=== PATIENT | male | born 1970 | race Caucasian/White ===

== ENCOUNTER 2018-06-18 06:51 | Inpatient (IN) ==
[2018-06-18] MEDS ORDERED: NS 1,000 ML IV ONE ×3 (07:08→17:28)
[2018-06-18] MEDS ORDERED: ZOFRAN IV ONE ×2 (07:08→09:57)
[2018-06-18] MEDS ORDERED: SODIUM CHLORIDE 0.9% INJ ONE (07:08)
[2018-06-18] MEDS ORDERED: PEPCID IV ONE (07:08)
[2018-06-18] MEDS ORDERED: DILAUDID IV ONE ×2 (07:08→09:57)
--- NOTE | 2018-06-18 07:14 | PROVIDER DOCUMENTATION ---
HPI-Abdominal Pain/GI Problem - General Chief Complaint: Abdominal Pain Stated Complaint: abd pain Time Seen by Provider: 06/18/18 07:00 Source: patient, EMS Allergies/Adverse Reactions: Patient Allergies Allergy/AdvReac Type Severity Reaction Status Date / Time No Known Allergies Allergy Verified 06/18/18 07:52 Home Medications: Home Medication List Medication Instructions Recorded Confirmed Last Taken Type NK [No Home Medications] 06/18/18 06/18/18 Unknown History - History of Present Illness-ABD Nature of Presenting Problems: Abdominal pain, gradual onset, 4 days ago. Pain is generalized, aching, severe , constant and waxes/wanes. There has been vomiting and nausea, lots of burping There has been also some flatus and liquid stools. No known infectious exposures, no known bad food exposures. 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 Abdominal Pain Onset Location: reports: generalized abdomen Pain Radiation: reports: no radiation Quality of Pain: reports: cramping, fullness, stabbing, tightness Severity in ED: reports: severe Onset/Duration: reports: 4 days ago Timing: reports: still present, constant, changing over time, getting worse Activities at Onset: reports: light activity Exposure to sick contacts?: No Modifying Factors: improves with: rest. worse with: movement, palpation, vomiting Associated Symptoms: reports: diaphoresis, diarrhea, fever/chills (subjective), loss of appetite, malaise, nausea, vomiting, weakness Last BM: this morning Dark Stools Present?: reports: none noticed (states stool is green) Rectal Bleeding: reports: none Rectal Pain: reports: none Emesis Description: reports: other (bilious) Bruising or Bleeding Gums?: No Similar Symptoms Previously?: No Recently seen or treated by another doctor?: No Review of Systems - Adult - REVIEW OF SYSTEMS - ADULT Constitutional: reports: see HPI, chills, fever, night sweats. denies: fatique , weight gain, weight loss Eyes: reports: no symptoms reported Ears, Nose, Mouth & Throat: reports: no symptoms reported Cardiovascular: reports: no symptoms reported Respiratory: reports: cough. denies: chronic cough, dyspnea on exertion, excessive sputum production, hemoptysis, pleurisy, shortness of breath, wheezing Gastrointestinal: reports: see HPI, abdominal pain, constipation, diarrhea, frequent heartburn, nausea, poor appetite, vomiting. denies: hematemesis Genitourinary: reports: no symptoms reported Musculoskeletal: reports: no symptoms reported Integumentary: reports: no symptoms reported Neurological: reports: no symptoms reported Psychiatric: reports: no symptoms reported Endocrine: reports: no symptoms reported Hematologic/Lymphatic: reports: no symptoms reported Allergic/Immunologic: reports: no symptoms reported All Other Systems: Reviewed and Negative Past History - Adult - PAST MEDICAL HISTORY-ADULT Review of Records: reports: Old Records Reviewed, Nursing Assessment Review, Medications Reviewed, Social history reviewed & non-contributory. Major Childhood Illnesses: reports: denies history Cardiovascular: reports: denies history Respiratory: reports: denies history Gastrointestinal: reports: denies history Obstetrical/Gynecological: reports: denies history Genitourinary: reports: denies history Musculoskeletal: reports: denies history Neurological: reports: denies history Endocrine/Immune: reports: denies history Other Conditions: reports: denies history - PRIOR SURGERIES/PROCEDURES Surgical/Procedure History: reports: none - IMMUNIZATION STATUS Childhood Immunizations: UTD Flu Vaccine: NUTD - FAMILY HISTORY Family History: reviewed, not pertinent - SOCIAL HISTORY Smoking: non-smoker Substance Use: none/never Alcohol Use Frequency: occasionally Living Situation: alone 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 negative: moist mucous membranes (dry mucous membranes) - NECK Neck: non-tender, full range of motion, supple, normal inspection - RESPIRATORY Respiratory: chest non-tender, lungs clear, normal breath sounds, no pleuratic chest pain, no respiratory distress, no accessory muscle use - CARDIOVASCULAR Cardiovascular: normal peripheral pulses, regular rate, rhythm, no edema, no gallop, no JVD, no murmur, tachycardia - GASTROINTESTINAL (ABDOMEN) Abdominal Exam: no organomegaly, no pulsatile mass, abnormal bowel sounds ( hypoactive), distended, guarding, rebound, tenderness (diffuse) - LYMPHATIC Lymphatic: no adenopathy - MUSCULOSKELETAL Back Exam: normal inspection, no CVA tenderness, no vertebral tenderness Extremity: normal range of motion, non-tender, normal gait, normal inspection, no pedal edema, no calf tenderness - SKIN Integumentary: normal color, normal turgor, warm/dry - 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 as tested, grossly normal, no motor/sensory deficits - PSYCHIATRIC Psych/Mental Status: normal mood/affect, normal thought content, normal thought process, oriented x 3 Progress - PLAN OF CARE/RESULTS Progress/Plan/Lab Results: Vital Signs - 8 hr 06/18/18 07:06 Temperature 99.0 F Pulse Rate 132 H Respiratory Rate 20 Blood Pressure 159/107 O2 Sat by Pulse Oximetry 98 Orders Category Date Time Status Saline Loc NOW Care 06/18/18 07:05 Ordered NPO Diet 06/18/18 07:[address] ABD/PELVIS W/IV CONT ONLY [CT] Stat Exams 06/18/18 07:07 Ordered FLAT/UPRIGHT ABD/1 VIEW CHEST [RAD] Stat Exams 06/18/18 07:07 Ordered AMYLASE [CHEM] Stat Lab 06/18/18 07:06 Uncollected BLOOD CULTURE [BLDCUL] Stat Lab 06/18/18 07:06 Uncollected C DIFF TOXIN [STOOL] Stat Lab 06/18/18 07:06 Uncollected CBC WITH ELECTRONIC DIFF [HEME] Stat Lab 06/18/18 07:06 Uncollected COMPREHENSIVE METABOLIC PANEL [CHEM] Stat Lab 06/18/18 07:06 Uncollected LACTATE, PLASMA [CHEM] Stat Lab 06/18/18 07:06 Uncollected LIPASE [CHEM] Stat Lab 06/18/18 07:06 Uncollected MAGNESIUM [CHEM] Stat Lab 06/18/18 07:06 Uncollected OCCULT BLOOD SCREENING [STOOL] Stat Lab 06/18/18 07:06 Uncollected TROPONIN T Stat Lab 06/18/18 07:06 Uncollected URINALYSIS W/POSS RFLX CULT [URINALYSIS] Stat Lab 06/18/18 07:06 Uncollected Famotidine [Pepcid] Med 06/18/18 07:08 Once 20 mg IV NOW ONE Hydromorphone [Dilaudid] Med 06/18/18 07:08 Once 1 mg IV NOW ONE Ns 1000 ml IV Bolus X1 Med 06/18/18 07:08 Ordered 0.9% Sodium Chloride Inj [Ns] 1,000 ml IV 999 mls/hr Ns 1000 ml IV Bolus X1 Med 06/18/18 07:08 Ordered 0.9% Sodium Chloride Inj [Ns] 1,000 ml IV 999 mls/hr Ondansetron [Zofran] Med 06/18/18 07:08 Once 4 mg IV NOW ONE Sodium Chloride 0.9% Med 06/18/18 07:08 Once 5 - 10 ml INJ NOW ONE EKG [EKG] Stat Ther 06/18/18 07:05 Ordered Result Diagrams: 06/18/18 07:29 06/18/18 07:29 - REASSESSMENT Reassessment #1 Time Reassessed: 08:47 Status: improving (decreased pain after IVF and hydromorphone. Aunt at bedside now, states he "works out a lot" abd takes "a lot of supplements, one of which can cause his urine to be dark brown.") Reassessment #2 Time Reassessed: 09:56 Status: worsening (Patient is complaining of increased abdominal pain and distension, will insert NGT and give more pain meds.) - XRAY 1 XRAY Study: Chest Impression: Normal, See EMR Report (CHEST-PORTABLE - 06/18/2018 INDICATION: abdominal pain, sepsis COMPARISON: None FINDINGS: The lungs are normally expanded and clear. Heart size and mediastinal contours are normal. No pneumothorax or pleural effusion. IMPRESSION: Negative exam. Electronically signed by Hernan Velazquez 06/18/2018 9:07 AM 06/18/18 0907 Interpreting Physician: Hernan Velazquez MD Dictated Date/Time: 06/18/18 0905 cc: Nathan Jorgensen MD; None,PCP) - CT/MRI 1 CT Study: Abdomen Impression: Abnormal (EXAM: CT ABDOMEN/PELVIS W/O CONTRAST 06/18/2018 HISTORY: abd pain, acute kidney injury TECHNIQUE: This exam was performed using automated exposure control, adjustment of mA or kV according to patient size, and/or use of iterative reconstruction technique. COMMENT: There is atelectasis and/or fibrosis present in the costophrenic sulci particularly on the left. There are no previous studies available for comparison. The spleen is enlarged measuring over 14.8 cm in superior-inferior dimension. There is no evidence of nephrolithiasis or hydronephrosis. There are no apparent gallstones. There is gas and fluid in the stomach without significant distention. The proximal small bowel is distended with gas there is no evidence of free air. There is no evidence of mucosal fold thickening. There is some fluid in the ascending colon. The distal small bowel is not distended. There is no clear transition in the small bowel. There is some apparent inflammatory changes in the retroperitoneal fat just above the bifurcation of the aorta and in the left posterior pararenal space. There is no evidence of abdominal aortic aneurysm. The left colon is not distended. There is perirectal fat stranding and thickening of the perirectal fascia. There is no evidence of diverticulitis. The urinary bladder is slightly distended. The prostate is not particularly enlarged measuring 4.5 cm in transverse dimension. There is a fat- containing left inguinal hernia. There are degenerative changes at the level of the L5-S1 disc space. No evidence of acute bony disease is present. The appendix is normal in appearance. IMPRESSION: Apparent proctitis and retroperitoneal inflammatory change/edema. Probable ileus. Splenomegaly. Electronically signed by Maik Bernabe 06/18/2018 9:09 AM), See EMR Report - CONSULTS/PCP/HOSPITALIST Notification #1 *Consult/PCP/Hospitalist*: Maged Time Discussed: 09:49 (Also discussed at 1000, will see after current OR case) Consult Disposition: other (WIll see in consultation) #2 Consult: Pool sanders Time Discussed: 10:04 (Admit to [facility]) Consult Disposition: Will see in ED Departure - Departure Date of Disposition Decision: 06/18/18 Time of Disposition Decision: 09:57 DIAGNOSIS: Abdominal pain in male, Acute kidney injury (nontraumatic) Sepsis Qualifiers: Sepsis type: sepsis due to unspecified organism Qualified Code(s): A41.9 - Sepsis, unspecified organism Disposition: ADMITTED INPATIENT 09 Certified Medical Emergency: Emergent Condition: Fair Referrals and Follow-Ups: None,PCP [Primary Care Provider] - - Critical Care Note This patient required my direct & personal management of CC.: Yes Total Time (mins): 50 Critical Care Statement: This patient required my direct personal management to treat or rule out processes, the absence of which, could potentiallly result in sudden, clinically significant life or limb threatening deterioration. Attestation - Physician/ CORINNA Attestation Patient care was provided by Advanced Practice Provider:: No The physician spent face to face time with patient:: Yes Advanced Practice Provider documentation review:: Supervising physician onsite and consulted in the evaluation and care of this patient. The physician did have a face to face encounter with the patient.
[2018-06-18 07:45] LABS: BASO# 0.01 X1000 (0.0-0.2); BASO% 0.1 % (0.0-0.8); HEMATOCRIT 47.5 % (42.0-52.0); HEMOGLOBIN 16.1 g/dL (14.0-18.0); IMM GRAN# 0.27 X1000 (0.0-0.04); IMM GRAN% 2.5 % (0.0-0.5); LYMPH# 0.19 X1000 (1.2-3.4); LYMPH% 1.7 % (20.5-51.1); MCH 29.7 PG (27-31); MCHC 33.9 g/dL (33-37); MCV 87.6 FL (81-99); MONO# 0.23 X1000 (0.11-0.59); MONO% 2.1 % (1.7-9.3); MPV 9.5 FL (7.4-10.4); NEUT# 10.19 X1000 (1.4-6.5); NEUT% 93.6 % (42.2-75.2); PLT 113 X1000 (130-400); RBC 5.42 XMIL (4.7-6.1); RDW 13.4 % (11.5-14.5); WBC 10.89 X1000 (4.8-10.8)
[2018-06-18 08:15] LABS: ALB/GLOB RATIO 1.6; ALBUMIN 4.1 g/dL (3.5-5.0); CALCIUM 8.6 mg/dL (8.8-10.2); CREATININE 2.7 mg/dL (0.7-1.2); MAGNESIUM 1.8 mg/dL (1.5-2.7); POTASSIUM 3.9 mmol/L (3.5-5.1); TOTAL BILIRUBIN 0.74 mg/dL (0.20-1.00); TOTAL PROTEIN 6.7 g/dL (6.3-8.3)
[2018-06-18 08:18] LABS: URINE SOURCE CLEAN CATCH
[2018-06-18] MEDS ORDERED: ZOSYN 4.5 GM in NS 100 ML IV ONE (08:28)
[2018-06-18 08:33] LABS: BILIRUBIN URINE NEGATIVE (NEGATIVE); BLOOD URINE SMALL (NEGATIVE); COLOR YELLOW; GLUCOSE URINE NEGATIVE (NEGATIVE); KETONE URINE NEGATIVE (NEGATIVE); LEUKOCYTES URINE NEGATIVE (NEGATIVE); NITRITE URINE NEGATIVE (NEGATIVE); PH URINE 5.5; PROTEIN URINE 100 mg/dL (NEGATIVE); SP GRAVITY URINE 1.017; TURBIDITY URINE HAZY (CLEAR); UROBILINOGEN URINE NORMAL (NORMAL)
[2018-06-18 08:55] LABS: UR EPITHELIAL CELLS <10 /HPF (<10); URINE BACTERIA NEGATIVE /HPF; URINE RBC <10 /HPF (<10); URINE WBC <10 /HPF (<10)
[2018-06-18 09:05] LABS: URINE CASTS WHITE CELL PRESENT
--- NOTE | 2018-06-18 09:09 | Diag Imaging Result Doc PS360 ---
CHEST-PORTABLE - 06/18/2018 INDICATION: abdominal pain, sepsis COMPARISON: None FINDINGS: The lungs are normally expanded and clear. Heart size and mediastinal contours are normal. No pneumothorax or pleural effusion. IMPRESSION: Negative exam. Electronically signed by Hernan Velazquez 06/18/2018 9:07 AM
--- NOTE | 2018-06-18 09:11 | Diag Imaging Result Doc PS360 ---
EXAM: CT ABDOMEN/PELVIS W/O CONTRAST 06/18/2018 HISTORY: abd pain, acute kidney injury TECHNIQUE: This exam was performed using automated exposure control, adjustment of mA or kV according to patient size, and/or use of iterative reconstruction technique. COMMENT: There is atelectasis and/or fibrosis present in the costophrenic sulci particularly on the left. There are no previous studies available for comparison. The spleen is enlarged measuring over 14.8 cm in superior-inferior dimension. There is no evidence of nephrolithiasis or hydronephrosis. There are no apparent gallstones. There is gas and fluid in the stomach without significant distention. The proximal small bowel is distended with gas there is no evidence of free air. There is no evidence of mucosal fold thickening. There is some fluid in the ascending colon. The distal small bowel is not distended. There is no clear transition in the small bowel. There is some apparent inflammatory changes in the retroperitoneal fat just above the bifurcation of the aorta and in the left posterior pararenal space. There is no evidence of abdominal aortic aneurysm. The left colon is not distended. There is perirectal fat stranding and thickening of the perirectal fascia. There is no evidence of diverticulitis. The urinary bladder is slightly distended. The prostate is not particularly enlarged measuring 4.5 cm in transverse dimension. There is a fat-containing left inguinal hernia. There are degenerative changes at the level of the L5-S1 disc space. No evidence of acute bony disease is present. The appendix is normal in appearance. IMPRESSION: Apparent proctitis and retroperitoneal inflammatory change/edema. Probable ileus. Splenomegaly. Electronically signed by Maik Bernabe 06/18/2018 9:09 AM
[2018-06-18 09:19] LABS: UR AMPHETAMINES QUAL NONE DETECTED (NONE DETECT); UR BARBITUATES QUAL NONE DETECTED (NONE DETECT); UR BENZODIAZEPIN QUAL NONE DETECTED (NONE DETECT); UR CANNABINOIDS QUAL NONE DETECTED (NONE DETECT); UR COCAINE QUAL NONE DETECTED (NONE DETECT); UR METHADONE QUAL NONE DETECTED (NONE DETECT); UR OPIATES QUAL PRESUMPTIVE POSITIVE (NONE DETECT); UR OXYCODONE QUAL NONE DETECTED (NONE DETECT); UR PCP QUAL NONE DETECTED (NONE DETECT)
--- NOTE | 2018-06-18 10:06 | ED EKG INTERP ---
EKG Interpretation - EKG Time of EKG reading by physician:: 09:20 EKG Read and Signed by:: Nathan Jorgensen EKG Interpretation (*Must complete 3 of following elements*): Abnormal Rate: 124 Rhythm: sinus tach [place]: normal [place] Interval: shortened (LAE, artifact present) ST Wave: normal Prior EKG Comparison: no prior EKG Attestation - Physician/ CORINNA Attestation Patient care was provided by Advanced Practice Provider:: No The physician spent face to face time with patient:: Yes Advanced Practice Provider documentation review:: Supervising physician onsite and consulted in the evaluation and care of this patient. The physician did have a face to face encounter with the patient.
[2018-06-18 10:09] LABS: INR 1.03; PROTIME 14.4 Seconds (11.0-16.0)
[2018-06-18 10:10] LABS: PTT 42.6 Seconds (22.3-41.8)
--- NOTE | 2018-06-18 10:16 | EKG Report ---
Test Performed on : 06/18/2018 09:14:25 AM Test Reason : abdominal pain Blood Pressure : / mmHG Vent. Rate : 124 BPM Atrial Rate : 124 BPM P-R Int : 150 ms QRS Dur : 092 ms QT Int : 298 ms P-R-T Axes : 030 049 -01 degrees QTc Int : 428 ms Sinus tachycardia. Possible Left atrial enlargement Borderline ECG No previous ECGs available Unconfirmed Result
[2018-06-18] MEDS ORDERED: ATIVAN IV ONE (10:21)
--- NOTE | 2018-06-18 11:00 | Diag Imaging Result Doc PS360 ---
EXAM: CHEST/ABD TUBE PLACEMENT 06/18/2018 HISTORY: tube placement TECHNIQUE: AP portable at 1050 COMMENT: There is an NG tube with its tip in the left upper quadrant presumably in the gastric body. There is extensive dilatation of small bowel loops in the midabdomen. IMPRESSION: NG tube in the stomach. Small bowel obstruction. Electronically signed by Maik Bernabe 06/18/2018 10:57 AM
[2018-06-18] MEDS ORDERED: PHENERGAN IV PRN (11:09)
[2018-06-18] MEDS ORDERED: NS 2,000 ML IV ONE (11:09)
[2018-06-18 12:13] LABS: UR CREAT RANDOM 234.3 mg/dL (14-26)
[2018-06-18] MEDS ORDERED: OFIRMEV 1000 MG/ISOTONIC SOLN 1,000 MG/100 ML BOTTLE IV PRN (12:13)
[2018-06-18 12:14] LABS: PROTEIN CREAT RATIO 0.3; UR CREAT RANDOM 239.9 mg/dL (14-26); UR PROT RANDOM 83.8 mg/dL
[2018-06-18] MEDS: NS 1,000 ML IV SCH ×2 (12:30→21:51)
[2018-06-18] MEDS: OFIRMEV 1000 MG/ISOTONIC SOLN 1,000 MG/100 ML BOTTLE IV PRN ×2 (12:30→18:49)
[2018-06-18] MEDS: PROTONIX IV SCH (12:30)
[2018-06-18] MEDS: LEVAQUIN 500 MG/D5W 500 MG/100 ML IVPB IV SCH (12:30)
[2018-06-18 12:31] LABS: ALLEN TEST YES; BE -5.9 mmoll (-3.0-3.0); BLOOD TYPE ARTERIAL; HCO3-(ACT) 20.2 mmoll (20.0-26.0); METHB 1.2 % (0.0-1.5); MODALITY CANNULA; O2(CT) 17.7 mL/dL (15.0-23.0); O2HB 93.6 % (95.0-99.0); PCO2(98.6) 33 mmHg (35-45); PO2(98.6) 77 mmHg (60-100); SAMPLE BLOOD; SAO2 96.2 % (95.0-100.0); THB 13.4 g/dL (11.5-17.4); pH(98.6) 7.36 (7.35-7.45)
[2018-06-18] MEDS: LOPRESSOR IV PRN ×2 (12:42→18:49)
[2018-06-18 12:43] LABS: ACETONE SERUM NEGATIVE (NEGATIVE)
[2018-06-18 12:48] LABS: SALICYLATES < 3.00 mg/dL (3-10)
[2018-06-18] MEDS: FLAGYL 500 MG/NS 500 MG/100 ML IVPB IV SCH ×3 (12:49→23:45)
[2018-06-18 12:58] LABS: HEMOGLOBIN A1C 5.2 % (4.8-6.0)
--- NOTE | 2018-06-18 13:26 | HISTORY AND PHYSICAL ---
PRIMARY CARE PROVIDER: None. CHIEF COMPLAINT: Fever, myalgia, and abdominal pain. HISTORY OF PRESENT ILLNESS: Mr. Martinez is a 47-year-old male with no known medical problems. 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 He is in [place] taking care of his aunt who just had back surgery. Mr. Martinez started having fever and chills on Saturday followed by abdominal discomfort, nausea, vomiting, and some diarrhea. This was waxing and waning over the weekend and Saturday he started having worsening abdominal pain, chills, myalgia, and finally came to the E.R. today for evaluation. Of note, Mr. Martinez also does daily weightlifting and takes multiple over- the-counter supplements which are of unknown name at this time. However, he reports none of them are illegal. In the E.R. he had multiple labs and diagnostics done, his chemistry noted an elevated anion gap and metabolic acidosis along with acute kidney injury. However, the rest of his laboratory data is essentially unremarkable. A subsequent CT of the abdomen and pelvis showed apparent proctitis and retroperitoneal inflammatory changes, edema, and probable ileus as well as splenomegaly. Given the symptoms, we ordered a flu swab which was found positive for flu A. The patient is normotensive, however, he is quite tachycardic with his heart rate in the 150s and he has a fever of 100.7 so we will be putting him in the ICU. PAST MEDICAL HISTORY: None. SURGICAL HISTORY: Tonsillectomy and adenoidectomy as a child. SOCIAL HISTORY: No tobacco or drug use. He drinks about a bottle of wine a day. He is . He has 2 children. 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 He also does daily weight-lifting with use of multiple OTC herbal supplements. FAMILY HISTORY: Significant for addiction and alcoholism. His mother is from a suicide. ALLERGIES: No known drug allergies. HOME MEDICATIONS: None, although he takes multiple supplements over-the- counter of which the names are unknown at this time. REVIEW OF SYSTEMS: A 14 point review of systems was obtained and found to be negative with the exception of the HPI. PHYSICAL EXAMINATION: VITAL SIGNS: Blood pressure is 150/107, heart rate 149, respiratory rate 31, O2 sat 96% on 2 L nasal cannula, and temperature 100.7. GENERAL: This is a well-developed, well-nourished, male lying in a hospital bed in no acute distress. NEUROLOGIC: The patient is sedated at this time. He was given Dilaudid and Ativan for NG tube placement. HEENT: The head is atraumatic and normocephalic. His pupils are equal, round, and reactive to light. Oral mucosa is extremely dry. NECK: Trachea is midline. There is no JVD. CHEST: Clear to auscultation. CARDIOVASCULAR: Extremely tachycardic. Regular rhythm. S1, S2 is noted. GASTROINTESTINAL: Distended and diffusely tender to palpation. There is some guarding and rebound tenderness. EXTREMITIES: The extremities are without edema, clubbing, or cyanosis. DIAGNOSTIC DATA: Abdomen and pelvic CT: Please see HPI. Chest x-ray: Negative. EKG: Sinus tach. Influenza A positive. WBC is 7.89, hemoglobin 16.1, hematocrit 47.5, and platelet count 113. INR is 1.03. Sodium is 138, potassium 3.9, chloride 97, CO2 21, anion gap 20, BUN 51, creatinine 2.7, glucose 131, magnesium 1.8, AST 16, ALT 17, and ALK PHOS 64. Troponin is negative. Total protein is 6.7, albumin 4.1, and lipase 9. Lactate repeat is 1.5. UA shows 100 protein and small blood. Toxicology is positive for opiates. ASSESSMENT AND PLAN: 1. Acute abdominal pain/ileus or small bowel obstruction: CT shows proctitis and ileus. However, this is an uncontrasted CT given his renal failure. Given the distention he was given an NG tube which has been putting out large amounts of drainage. We will consult surgery. Continue IV fluids and antiemetics as well as antibiotics. We have also ordered comprehensive stool studies. 2. Influenza A positive: Tamiflu has been started and we have also ordered Ofirmev for his fever. He will be placed on droplet precautions and monitored closely for any secondary infection. 3. Acute kidney injury: It would appear to be prerenal given his volume status. However, he takes multiple [id number]-srt-[id number] supplements which we do not know the names of , which could certainly be causing renal issues. CT of the abdomen and pelvis does not show any obstruction. We are checking urine electrolytes and continuing aggressive fluid resuscitation. 4. Thrombocytopenia and splenomegaly on CT: Unclear of the significance. He does drink 1 bottle of wine a day, possibly more. We will check his B12 and folate as well as a hepatitis panel and HIV screen. 5. Deep vein thrombosis prophylaxis with sequential compression devices. Further recommendations to follow. TIME SPENT: Critical care time with this patient was 45 minutes. Dictated by JOANN Seaman for Tree Dunbar MD cc: JOANN Seaman MD [facility]
[2018-06-18 13:41] LABS: URINE SOURCE CATH
[2018-06-18 13:44] LABS: BILIRUBIN URINE NEGATIVE (NEGATIVE); BLOOD URINE SMALL (NEGATIVE); COLOR YELLOW; GLUCOSE URINE NEGATIVE (NEGATIVE); KETONE URINE NEGATIVE (NEGATIVE); LEUKOCYTES URINE NEGATIVE (NEGATIVE); NITRITE URINE NEGATIVE (NEGATIVE); PH URINE 5.5; PROTEIN URINE 100 mg/dL (NEGATIVE); SP GRAVITY URINE 1.014; TURBIDITY URINE HAZY (CLEAR); UROBILINOGEN URINE NORMAL (NORMAL)
[2018-06-18 14:15] LABS: UR EPITHELIAL CELLS <10 /HPF (<10); URINE BACTERIA NEGATIVE /HPF; URINE RBC <10 /HPF (<10); URINE WBC <10 /HPF (<10); URINE YEAST PRESENT
[2018-06-18 14:17] LABS: URINE CASTS NONE SEEN; URINE CRYSTALS NONE SEEN; URINE SMALL ROUND CELLS NONE SEEN
[2018-06-18] MEDS: TAMIFLU PO SCH ×2 (15:26→20:46)
--- NOTE | 2018-06-18 17:07 | Diag Imaging Result Doc PS360 ---
EXAM: No visible liver lesion. - 06/18/2018 HISTORY: elevated liver enzymes TECHNIQUE: Ultrasound gallbladder COMPARISON: None. FINDINGS: There is sludge in the gallbladder versus artifact. There are no shadowing or mobile gallstones identified. There is no abnormal gallbladder wall thickening or pericholecystic fluid seen. The technologist reports negative sonographic Pradhan's sign. The common bile duct is normal caliber at 5 mm. There are no abnormalities of the liver or visualized portions of the pancreas identified. Doppler image shows hepatopedal flow in the portal vein. There is a 5 mm echogenic focus without shadowing at the corticomedullary margin of the mid right kidney. This is likely an artifact. The right kidney shows no other abnormalities. Visualized portions of abdominal aorta appear normal caliber. IMPRESSION: Questionable sludge in gallbladder versus artifact. No evidence of gallstones. Normal caliber common bile duct at 5 mm. Electronically signed by Venkat Cabrales 06/18/2018 5:05 PM
--- NOTE | 2018-06-18 17:31 | GASTROENTEROLOGY CONSULTATION ---
DATE: 06/18/2018 REASON FOR CONSULTATION: Proctitis on imaging. HISTORY OF PRESENT ILLNESS: Mr. Lucas Martinez is a 47-year-old gentleman with no significant past medical history who presents with 4 days of subjective fever, myalgias, and abdominal pain. He says that over the last 3 days he has noticed increasing abdominal distention, bloating, and diffuse abdominal pain. He reports having some liquid brown stools, small volume, a couple of times a day. No rectal bleeding, hematochezia, or hematemesis. He denies any history of similar symptoms in the past. No recent sick contacts. No new medications. He does take different supplements for various reasons. No prior abdominal surgeries. No family history of colon cancer or intestinal diseases. His mother of a suicide. Family history is notable for alcoholism. He does state that he previously drank pretty heavily and would go through a couple of bottles of liquor over the weekends a few years ago and now he says that he drinks several beers per week. He denies any prior complications from alcohol in the past. No jaundice, ascites, or GI bleeding. He does say that he had an upper GI series in the remote past for GERD but has never had an EGD or colonoscopy. Lastly, he does deny any rectal trauma or enemas. PAST SURGICAL HISTORY: Tonsillectomy and adenoidectomy. MEDICATIONS: None. Multiple supplements as outlined in the medical record. FAMILY HISTORY: No GI malignancies. SOCIAL HISTORY: Nonsmoker. No drug use. Significant alcohol history in the past. ALLERGIES: No known drug allergies. REVIEW OF SYSTEMS: A 12 point review of systems is otherwise negative. PHYSICAL EXAMINATION: Vital Signs: Temperature is 100.7, heart rate 149, respiratory rate 31, blood pressure 150/107, and O2 saturation 96% on 3 L nasal cannula. General: The patient is awake, alert, oriented, and in no acute distress. HEENT: Sclerae are anicteric. Dry mucous membranes. NG tube with bilious fluid in the reservoir. Neck: No JVD or lymphadenopathy. Cardiac: Tachycardic. Normal rhythm. No murmurs. Lungs: Clear to auscultation bilaterally. The patient has notable gynecomastia on his chest. Abdomen: Distended and tympanic. Mild diffuse tenderness to palpation throughout. Hypoactive bowel sounds. No rebound or guarding. Extremities: No lower extremity edema. No rashes. Neurological: Nonfocal. Cranial nerves 2 through 12 are grossly intact. Psych: Normal affect. LABORATORY DATA: White count of 10.8, hemoglobin of 16.1, and platelets of 113,000. INR of 1.03. Sodium is 138, potassium 3.9, chloride 97, bicarb 21, BUN 51, creatinine 2.7 from unknown baseline, glucose 131, and calcium 8.6. LFTs are normal. Lipase of 9. Lactate of 3. UA shows some proteinuria, otherwise negative. Urine tox was positive for opiates. IMAGING: Chest x-ray is normal. CT of the abdomen and pelvis without contrast shows apparent proctitis and retroperitoneal inflammatory changes and edema, probable ileus and splenomegaly. ASSESSMENT AND PLAN: Mr. Lucas Martinez is a 47-year-old gentleman with a notable history of alcoholism who presents with sepsis in the setting of influenza A and ileus. Labs are notable for an elevated lactate of 3, creatinine of 2.7 consistent with acute kidney injury, and thrombocytopenia. Liver function tests are normal as well as coagulation studies. The patient was started on Tamiflu for influenza. He is currently n.p.o. and Surgery is being consulted for his ileus. In regards to his proctitis, he does not have any risk factors for human immunodeficiency virus or infectious proctitis. Other etiologies include inflammatory proctitis including ulcerative proctocolitis. This was a noncontrast study and could be represented by underdistention of the rectum. He will need a diagnostic colonoscopy once his acute issues resolve. Currently there is no evidence of gastrointestinal bleeding. 1. Proctitis. Recommend HIV testing, send off stool culture as well as C. difficile and ova and parasites if the patient has a bowel movement. 2. Ileus. Continue supportive care repleting electrolytes and IV fluids. N.P.O. status. Serial abdominal exams. Appreciate Surgery recommendations. 3. Sepsis, secondary to influenza. On Tamiflu. We will defer management to the primary team. 4. Thrombocytopenia, likely secondary to splenomegaly. Patient likely has SRINI versus cirrhosis. No stigmata of cirrhosis on exam. Recommend an abdominal ultrasound prior to discharge. 5. Alcoholism. Recommend CIWA. Start the patient on thiamine 100 mg daily, folate 1 mg daily, and multivitamin. Continue alcohol cessation counseling. We will follow with you. Please call with any questions or concerns.
--- NOTE | 2018-06-18 17:55 | HISTORY AND PHYSICAL ---
ADDENDUM: This is an addendum with JOANN Castillo. The patient came in with abdominal pain, some diarrhea, fever, myalgias. Workup in the ER revealed a fever, 102.8 degrees. He was tachycardic in the 150s. He is plethoric and seems vasodilated. Not hypotensive, though. His labs showed a mild thrombocytopenia. White count mildly elevated. He was in renal failure. His abdominal exam was distended. Bowel sounds were not present, but no rebound or guarding. His CT scan showed questionable ileus versus enteritis and possibly proctitis. It was noncontrast because of his renal insufficiency and nausea and vomiting. PROBLEM LIST: 1. Influenza A, which may explain most of his issues. Because of his throwing up or having some difficulty, we will attempt to give Tamiflu. 2. Sepsis, tachycardia, dehydration, acute kidney injury. We will continue intravenous fluids and follow. No nonsteroidal anti-inflammatory drugs. We will continue to monitor. 3. Proctitis. We will continue empiric antibiotics. Gastroenterology has been consulted, but feel like most of this is from the flu. 4. Thrombocytopenia and splenomegaly. He is not a daily drinker. He has a heavy use in the past. It is entirely possible he may have some degree of alcoholic steatohepatitis, but we will monitor his platelet count. Could be some viral suppression as well, but we will continue to monitor. Check urine electrolytes and follow. This is a [id number] encounter note with JOANN Castillo. cc: Tree Dunbar MD
[2018-06-18] MEDS: MORPHINE IV PRN ×2 (18:08→23:22)
[2018-06-18 18:35] LABS: HIV ANTIBODY SCREEN SEE COMMENTS
--- NOTE | 2018-06-18 19:01 | GENERAL SURGERY CONSULTATION ---
DATE: 06/18/2018 CHIEF COMPLAINT: Abdominal pain. HISTORY: A 47-year-old white male who began experiencing fatigue 3 days ago while at the gym. This was subsequently followed by chills and fever, and then the next day Saturday he developed abdominal pain, began lower in his abdomen and seemed to spread upward. He reports vomiting only one time, passing a little stool twice a day since then, but has had increasing abdominal pain, chills and fever. He sought medical attention this morning. He reports a possible history of ulcer disease when he was 14 years ago because of his mother's . He also had some depression at that point. He also has been through otherwise stress recent in the past year, including a divorce in [place] as well as [place] in [place]. He reports previous tonsillectomy and adenoidectomy as a child. SOCIAL HISTORY: He denies tobacco or illicit drug use. He does drink alcohol regularly. He reports having a glass of rum a week ago, some beer on Saturday before he became ill on Saturday. 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 He does a lot of weightlifting and takes over-the- counter herbal supplements, the nature of which we do not know. FAMILY HISTORY: Pertinent for alcoholism and addiction. ALLERGIES: He has no known drug allergies. MEDICATIONS: He has no medications except the [id number] supplements. REVIEW OF SYSTEMS: As noted above. PHYSICAL EXAMINATION: Vital Signs: Temperature is a 100.3, heart rate 128, blood pressure 153/104, respiratory rate 14. General: He is somewhat tremulous. As I speak to him he is awake and alert and oriented. He has an NG tube in with bilious output. HEENT: No cervical adenopathy. Lungs: Bilateral breath sounds. Heart: Regular rate and rhythm. Abdomen: Somewhat distended and diffusely tender with peritoneal signs. No hernia palpated. Extremities: Femoral pulses are present. No peripheral edema. ASSESSMENT: Colitis;sepsis, acute kidney injury RECOMMEND: Agree that antibiotic therapy and resuscitation is of first priority Will follow along with serial abd exams. Exploration remains a possibility but not initially. Ovi Lynne MD, FACS cc: Ovi Lynne MD [facility]
[2018-06-18] MEDS ORDERED: VANCOMYCIN IV PER PHARMACY MISC SCH (22:45)
[2018-06-18] MEDS ORDERED: VANCOMYCIN 1,950 MG in NS 500 ML IV ONE (23:00)
[2018-06-19] MEDS: OFIRMEV 1000 MG/ISOTONIC SOLN 1,000 MG/100 ML BOTTLE IV PRN ×2 (02:56→11:22)
[2018-06-19] MEDS: MORPHINE IV PRN ×5 (02:57→20:24)
[2018-06-19] MEDS: NS 1,000 ML IV SCH ×3 (03:41→17:20)
[2018-06-19 05:20] LABS: BASO# 0.01 X1000 (0.0-0.2); BASO% 0.1 % (0.0-0.8); HEMATOCRIT 37.2 % (42.0-52.0); HEMOGLOBIN 12.5 g/dL (14.0-18.0); IMM GRAN# 0.09 X1000 (0.0-0.04); IMM GRAN% 0.9 % (0.0-0.5); LYMPH# 0.32 X1000 (1.2-3.4); LYMPH% 3.1 % (20.5-51.1); MCH 30.1 PG (27-31); MCHC 33.6 g/dL (33-37); MCV 89.6 FL (81-99); MONO# 0.45 X1000 (0.11-0.59); MONO% 4.4 % (1.7-9.3); MPV 10.1 FL (7.4-10.4); NEUT% 91.5 % (42.2-75.2); PLT 110 X1000 (130-400); RBC 4.15 XMIL (4.7-6.1); RDW 13.7 % (11.5-14.5); WBC 10.27 X1000 (4.8-10.8)
[2018-06-19] MEDS: FLAGYL 500 MG/NS 500 MG/100 ML IVPB IV SCH ×4 (05:34→17:20)
[2018-06-19 05:51] LABS: CALCIUM 8.5 mg/dL (8.8-10.2); CREATININE 1.4 mg/dL (0.7-1.2); MAGNESIUM 2.1 mg/dL (1.5-2.7); POTASSIUM 3.5 mmol/L (3.5-5.1)
[2018-06-19 06:58] LABS: LYMPHS 4 % (21-51); MONO 3 % (1-9); SEGS 93 % (42-75)
[2018-06-19] MEDS: TAMIFLU PO SCH ×2 (08:36→20:25)
--- NOTE | 2018-06-19 09:42 | PROGRESS NOTE ---
DATE: 06/19/2018 INTERVAL HISTORY: Overnight, both of the patient's blood cultures grew gram-positive cocci, and intravenous vancomycin was added. The patient continues to have fever. He continues to put out significant output through the NG tube, about 1.8 L so far since admission. SUBJECTIVE: The patient tells me that about a week ago, he did have unprotected sexual intercourse including anal intercourse with a male partner, however, he does not want me to reveal this information to any of his family members. I assured him that this information would be kept to himself, but I also informed him that in order to ensure better medical care, this information might be shared among the healthcare providers taking care of him and he was in agreement. He is feeling a little better than yesterday. He is denying any chest pain or shortness of breath. His abdominal pain has improved. However, he still continues to have abdominal pain. He had a very small bowel movement yesterday, which was pasty yellow. He denies noticing any pus coming out. OBJECTIVE: Vital Signs: Temperature 99.2 degrees, pulse 110 per minute, blood pressure 137/95, saturating 97% on 3 L nasal cannula. General: Appears in mild to moderate distress because of abdominal discomfort. HEENT: He has an NG tube in place. Oral cavity is moist. Lungs: Air entry bilaterally equal. No wheeze, rhonchi, or crackles. Cardiovascular: S1 and S2 normal. Tachycardic. No murmur, rub, or gallop. Abdomen: Distended, soft. He has generalized abdominal tenderness, more prominent on the lower quadrants. Active bowel sounds. Lower Extremities: No edema. Genitourinary: He has a Palencia catheter in place. LABORATORY DATA: Labs suggestive of low hemoglobin and hematocrit, thrombocytopenia, low potassium, hyperchloremia, improving anion gap, what appears to be chronic kidney disease stage 3. Urine opiate screen was positive. HIV 1 and 2 antibodies were nonreactive. MICROBIOLOGY: Both blood cultures are growing gram-positive cocci. Influenza screen was positive for influenza type A. ASSESSMENT AND PLAN: 1. Sepsis due to gram-positive cocci, likely source being proctitis. Continue intravenous vancomycin. He was already on intravenous levofloxacin and intravenous Flagyl, which I would keep for now until final blood culture results come back. Gastroenterology on board. The likely source of proctitis could be mechanical erosion of rectal mucosa. 2. Acute abdominal pain and ileus versus small bowel obstruction. This is likely ileus secondary to his acute illness. Continue nasogastric tube suctioning. Continue intravenous fluids. Intravenous opioids for pain. Surgery on board. 3. Influenza type A. Continue droplet precautions and also Tamiflu. 4. Acute kidney injury, likely prerenal acute renal failure, improving. Continue intravenous fluid resuscitation. Follow up with [facility]. 5. Thrombocytopenia and splenomegaly. His thrombocytopenia could be related to hypersplenism, which could be related to alcohol use disorder. No need of transfusion at the moment. 6. Deep venous thrombosis prophylaxis. Sequential compression devices. I will consider chemical prophylaxis starting tomorrow. 7. Disposition. The patient remains inside the intensive care unit. TIME SPENT: More than 30 minutes of critical care time was spent in taking of this patient. The patient did not want me to reveal too much information regarding his health condition to his family, especially the mechanism through which he could have acquired proctitis. All of his questions have been answered. cc: Chet Gilmore MD
[2018-06-19] MEDS: POTASSIUM CHLORIDE 20 MEQ/SWI 20 MEQ/100 ML IVPB IV SCH ×2 (10:16→14:08)
[2018-06-19] MEDS: SODIUM CHLORIDE 0.9% INJ SCH (11:03)
[2018-06-19] MEDS: PROTONIX IV SCH (11:03)
[2018-06-19 12:35] LABS: HEPATITIS PROFILE ACUTE SEE COMMENTS
--- NOTE | 2018-06-19 12:59 | Diag Imaging Result Doc PS360 ---
ABDOMEN FLAT/UPRIGHT - 06/19/2018 INDICATION: Follow up ileus COMPARISON: 06/18/2018 FINDINGS: There isr persistent, high-grade small bowel obstruction. There are several loops of severely dilated small bowel measuring up to 5.3 cm. There is a nasogastric tube in the stomach. No free air. IMPRESSION: High-grade small bowel obstruction. No ileus. Electronically signed by Hernan Velazquez 06/19/2018 12:57 PM
--- NOTE | 2018-06-19 13:53 | GASTROENTEROLOGY PROGRESS NOTE ---
DATE: 06/19/2018 SUBJECTIVE: The patient is currently resting in bed. He was awake. He has an NG tube in place. It has drained out 1800 mL so far up to today. He has not passed any flatus. He has not had a bowel movement. OBJECTIVE: Vitals: Temperature 100.7 degrees, pulse rate of 116, respiratory rate 31, blood pressure 140 to 111, saturating 97%. General: The patient is lying in bed, in no acute distress. HEENT: Mild pallor. No icterus. Nasal cannula in place. Neck: Supple. Abdomen: Protuberant. Tympanic on percussion. Mild discomfort in the periumbilical region. No rebound or guarding. Extremities: No cyanosis, clubbing, edema. Neurologic: Alert, awake, and oriented x3. DIAGNOSTIC DATA: His hemoglobin and hematocrit is 12.5 and 37.2, white count of 10.27, platelet count of 110,000. INR 1.03. His sodium 140, potassium 3.5 chloride 112, bicarb 23, with BUN of 36, creatinine 1.4, glucose of 103. Calcium is 8.5. Phosphorus 2.7 Magnesium 2.1. Liver enzymes are normal. Lactate on yesterday was 3. Lipase of 9. Tox screen positive for opioids. HIV 1 and 2 are nonreactive. Blood cultures x2 were drawn yesterday and showed gram- positive cocci. Further speciation is pending. Influenza screen was positive for influenza A. Abdominal CT scan on admission showed heparin proctitis retroperitoneal inflammatory change/edema, probable ileus and splenomegaly. Abdominal ultrasound was done which showed questionable sludge in the gallbladder versus artifact, no evidence of gallstones, normal common bile duct caliber at 5 mm. IMPRESSION AND PLAN: 1. Sepsis secondary to gram-positive cocci. He is on IV antibiotics per the primary team. 2. Ileus, abdominal pain versus small-bowel obstruction. He has NG tube in place, which is on intermittent suction. Surgery is on board. We will perform serial abdominal exams. 3. Influenza type A. He is on droplet precautions. He is on Tamiflu. 4. Acute kidney injury. He is on IV fluids. 5. Thrombocytopenia, splenomegaly. This is being worked up by the primary team. 6. DVT prophylaxis. SCDs. 7. GI prophylaxis with PPIs. 8. Stool studies have been ordered. I will follow up for further workup of proctitis. HIV is negative. He may need a flexible sigmoidoscopy in the near future for further workup of proctitis. 9. The above was discussed with the patient and the nursing staff and all questions were answered. cc: Berny Murphy MD MTDD
[2018-06-19] MEDS: HEPARIN SUBQ SCH ×2 (14:00→20:25)
[2018-06-19] MEDS: LEVAQUIN 500 MG/D5W 500 MG/100 ML IVPB IV SCH (14:00)
--- NOTE | 2018-06-19 15:12 | GENERAL SURGERY PROGRESS NOTE ---
DATE: 06/19/2018 SUBJECTIVE: Mr. Martinez feels better today. OBJECTIVE: Vital signs: His temperature has come down, it is back to 100.7, heart rate is 110, blood pressure 142/100. Intake and output: He is positive 3600 mL. Abdomen: His abdomen is less tender. He does have occasional cramps. DIAGNOSTIC STUDIES: White count is down to 10,200, hemoglobin 12.5. His BUN is gone down to 36, creatinine down 1.4. His x-ray is more consistent with proximal small-bowel dilatation. PLAN: The plan is continue with NG suction. We will re-x-ray him tomorrow and continue with intravenous hydration to normalize his kidney function. We will consider him for operative intervention tomorrow after evaluating him. cc: Ovi Lynne MD
[2018-06-20] MEDS: OFIRMEV 1000 MG/ISOTONIC SOLN 1,000 MG/100 ML BOTTLE IV PRN (00:14)
[2018-06-20] MEDS: NS 1,000 ML IV SCH ×2 (00:14→08:08)
[2018-06-20] MEDS: FLAGYL 500 MG/NS 500 MG/100 ML IVPB IV SCH ×4 (00:14→18:08)
[2018-06-20] MEDS: VANCOMYCIN 1,750 MG in NS 250 ML IV SCH (00:14)
[2018-06-20] MEDS: HEPARIN SUBQ SCH ×3 (04:10→21:36)
[2018-06-20] MEDS: MORPHINE IV PRN ×4 (04:12→10:37)
[2018-06-20 05:31] LABS: BASO# 0.01 X1000 (0.0-0.2); BASO% 0.1 % (0.0-0.8); HEMATOCRIT 39.2 % (42.0-52.0); HEMOGLOBIN 13.3 g/dL (14.0-18.0); IMM GRAN% 0.8 % (0.0-0.5); LYMPH# 0.74 X1000 (1.2-3.4); LYMPH% 5.9 % (20.5-51.1); MCH 30.4 PG (27-31); MCHC 33.9 g/dL (33-37); MCV 89.7 FL (81-99); MONO# 0.76 X1000 (0.11-0.59); MONO% 6.1 % (1.7-9.3); MPV 10.3 FL (7.4-10.4); NEUT# 10.83 X1000 (1.4-6.5); NEUT% 87.1 % (42.2-75.2); PLT 131 X1000 (130-400); RBC 4.37 XMIL (4.7-6.1); RDW 13.7 % (11.5-14.5); WBC 12.44 X1000 (4.8-10.8)
[2018-06-20 05:38] LABS: AGAP 11; BUN 33 mg/dL (8-22); CALCIUM 8.5 mg/dL (8.8-10.2); CHLORIDE 111 mmol/L (98-107); COSMO 294; ESTIMATED GFR > 60; GLUCOSE 100 mg/dL (70-104); POTASSIUM 3.4 mmol/L (3.5-5.1); SODIUM 144 mmol/L (136-145); TCO2 22 mmol/L (25-35)
[2018-06-20] MEDS: TAMIFLU PO SCH ×2 (08:08→21:36)
[2018-06-20] MEDS ORDERED: D5 1/2 NS 1,000 ML IV SCH (08:45)
[2018-06-20] MEDS: POTASSIUM CHLORIDE 20 MEQ/SWI 20 MEQ/100 ML IVPB IV SCH ×2 (09:12→11:19)
--- NOTE | 2018-06-20 10:53 | PROGRESS NOTE ---
DATE: 06/20/2018 INTERVAL HISTORY: Yesterday, abdominal x-ray had suggested multiple dilated loops of small intestine suggestive of small bowel obstruction. Repeat abdominal x-ray in the morning is pending. No other overnight events. SUBJECTIVE: The patient is in fact feeling better. He thinks that his abdominal pain in the lower quadrant is significantly decreased. He still has some epigastric tenderness. He continues to have nasogastric suction. He kept on having fever episodes overnight. I discussed with him about positive blood culture results and answered all of his questions. Vital signs: Temperature latest is 98.6, pulse 99, respiratory rate 18, blood pressure 168/111, saturation 97% on 3 L nasal cannula. General: Does not appear in any acute distress. Oral cavity is moist. He has an NG tube in place. Air entry bilaterally equal. No wheeze, rhonchi or crackles. S1 and S2 normal. Improved tachycardia. No murmur, rub or gallop. His heart rate is in the 90s. Abdomen is distended, soft. Tender in especially epigastric region. Bowel sounds are active. No lower extremity edema. He has a Palencia catheter in place. DIAGNOSTIC DATA: Labs suggestive of leukocytosis. Acceptable range of hemoglobin and hematocrit. Thrombocytopenia has resolved. Hypokalemia, hyperchloremia, improving acute kidney injury. Microbiology with blood cultures growing gram-positive cocci. ASSESSMENT AND PLAN: 1. Sepsis due to gram-positive cocci, likely source being proctitis. Continue intravenous vancomycin. Continue intravenous levofloxacin and intravenous Flagyl for acute proctitis which he was already started on until final blood culture results come back. 2. Acute small bowel obstruction. Continue NG tube suctioning. Continue intravenous fluids. Follow with abdominal x-ray on 06/20/2018. Surgery onboard to evaluate for possible need for surgical intervention. 3. Influenza type A. Continue droplet precautions and Tamiflu. 4. Acute kidney injury due to prerenal acute renal failure because of sepsis, resolving. I will change fluids to D5 half normal saline for his hyperchloremia, and I would also replete potassium for hypokalemia. 5. 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 No need of transfusion at the moment. It is improving. 6. DVT prophylaxis with sequential compression devices. I will start the patient on heparin with holding parameters for surgery. DISPOSITION: The patient remains inside ICU. More than 30 minutes of critical care time was spent in taking care of this patient. The patient did not want us to reveal the information to his family. All of his questions have been answered. cc: Chet Gilmore MD
[2018-06-20] MEDS ORDERED: VANCOMYCIN 1,550 MG in NS 250 ML IV SCH (11:00)
[2018-06-20] MEDS: LEVAQUIN 500 MG/D5W 500 MG/100 ML IVPB IV SCH (11:20)
[2018-06-20] MEDS: PROTONIX IV SCH (11:20)
--- NOTE | 2018-06-20 12:39 | Diag Imaging Result Doc PS360 ---
EXAM: FLAT/UPRIGHT ABD/1 VIEW CHEST 06/20/2018 HISTORY: abdominal distention TECHNIQUE: Flat and upright abdomen with AP chest portable COMMENT: There is an NG tube with its tip in the stomach. There is bibasilar atelectasis. This was also present on 06/19/2018. There are loops of markedly distended small bowel in the midabdomen. There is a small amount of gas in the colon including the rectum. There is no evidence of organomegaly or mass. IMPRESSION: Partial small bowel obstruction. Bibasilar atelectasis. Electronically signed by Maik Bernabe 06/20/2018 12:37 PM
--- NOTE | 2018-06-20 14:11 | GENERAL SURGERY PROGRESS NOTE ---
DATE: 06/20/2018 Mr. Martinez says he feels better this morning. He thought he was going to pass some flatus or have bowel movement. His abdomen is less tender. His hemodynamics are better. Temperature is 97.8 degrees it 8 o'clock this morning. His x-ray shows air in his colon now and less loops of distended small bowel. With his clinical improvement, I think we should continue to observe him for now. I will follow along. [facility] will cover the weekend. cc: Ovi Lynne MD
--- NOTE | 2018-06-20 14:17 | PROVIDER PROGRESS NOTE ---
Progress Note - - SUBJECTIVE: No acute overnight events. No fever. Patient reports multiple episodes of bilious vomiting earlier today and diffuse abdominal pain that has subsided some. No flatus or bowel movements. frequent belching OBJECTIVE: Last Vital Signs Temp 99.0 F 06/20/18 12:00 Pulse 101 H 06/20/18 12:30 Resp 29 H 06/20/18 12:30 BP 159/112 06/20/18 12:00 Pulse Ox 98 06/20/18 12:30 Height 5 ft 11 in Weight 188 lb 3.2 oz GEN: awake, alert, NAD HEENT: anicteric, MMM, NGT in place CV: tachycardic, regular, no murmurs PULM: CTAB ABD: distended, tympanic, mild to moderate diffuse TTP, no rebound or guarding, hypoactive BS EXT: no cce NEURO: Nonfocal LABS: 06/20/18 06/20/18 04:42 04:42 WBC 12.44 H Hgb 13.3 L Plt Count 131 Sodium 144 Potassium 3.4 L Chloride 111 H Carbon Dioxide 22 L BUN 33 H Creatinine 1.0 A/P: Mr. Lucas Martinez is a 47-year-old gentleman with a notable history of alcoholism who presents with sepsis found to have influenza A, GPC bacteremia, and proctitis (on imaging). He appears to have evolving bowel obstruction on imaging that was initially thought be an ileus on presentation. His KUB this AM show multiple loops of dilated SB concerning for bowel obstruction. He does not appear to have significant colonic dilation, making proctitis unlikely the cause of his obstructive symptoms. Clinically, I would not recommend diagnostic sigmoidoscopy at this time, until his obstruction resolves. I have spoke to surgery team today who is concerning surgical evaluation. #Question partial vs high grade bowel obstruction - continue NGT to LIWS - NPO, correct lytes, IVFs, antiemetics prn - serial abdominal exams, KUBs - surgery following, appreciate recs #Influenza: on Tamiflu #GPC bacteremia: on abx per primary team #Proctitis: HIV negative: unclear etiology; defer endoscopic evaluation for now #Thrombocytopenia: 2/2 to splenomegaly Will follow with you. Please call with questions or concerns
[2018-06-20] MEDS ORDERED: DIPRIVAN 1% ONE (16:00)
[2018-06-20] MEDS ORDERED: DECADRON ONE (16:54)
[2018-06-20] MEDS ORDERED: ZOFRAN ONE (16:54)
[2018-06-20] MEDS ORDERED: ZEMURON ONE (17:05)
[2018-06-20] MEDS ORDERED: XYLOCAINE-MPF 2% ONE (17:05)
[2018-06-20] MEDS ORDERED: QUELICIN (DOSE) ONE (17:05)
[2018-06-20] MEDS ORDERED: FENTANYL ONE (17:11)
[2018-06-20] MEDS ORDERED: ROBINUL ONE (17:13)
[2018-06-20] MEDS ORDERED: SENSORCAINE-MPF 0.5%/EPI 1:200,000 ONE (17:22)
[2018-06-20] MEDS ORDERED: DILAUDID ONE (17:36)
[2018-06-20] MEDS: D5 1/2 NS + KCL 20 MEQ 1,000 ML IV SCH (18:07)
--- NOTE | 2018-06-20 22:59 | OPERATIVE NOTE ---
PROCEDURE DATE: 06/20/2018 OPERATION: 1. Exploratory laparotomy. 2. Lysis of adhesions to pelvic floor. 3. Appendectomy. SURGEON: Ovi Lynne MD COSTUMING SUPERVISOR: Hakan Campbell MD PREOPERATIVE DIAGNOSES: 1. Small-bowel obstruction. 2. Proctitis with retroperitoneal inflammation. POSTOPERATIVE DIAGNOSES: 1. Small-bowel obstruction. 2. Proctitis with retroperitoneal inflammation. INDICATIONS: This is a 47-year-old who was admitted 2 days ago with sepsis and acute kidney injury. Since then, he has developed a small-bowel dilatation, putting out a very large amount of NG output. He has had essentially no bowel activity, with no bowel movement and no flatus. His x- ray suggests a small-bowel obstruction. He wants something done, so we have decided to explore him. PROCEDURE: Satisfactory general endotracheal anesthesia was achieved. The abdomen was prepped and draped in sterile fashion. A midline incision was made. Dissection was carried through the subcutaneous tissue and through the fascia. We opened the peritoneum and extended the skin incision. We were met with multiple loops of dilated small bowel. We reduced the small bowel out of the abdominal cavity and followed it down to the non-compressed areas. What we found was that a loop of the bowel was attached to the retroperitoneum, where we noticed obvious inflammation within the retroperitoneum just to the right of the sigmoid colon. We lysed these adhesions where the small bowel was stuck, freeing it up all the way to the cecum. There was no obvious purulence in the retroperitoneum, it was just inflamed and edematous. The distal sigmoid/proximal rectum was thick-walled. We did enter the lesser sac to be certain there was no posterior perforation of the duodenum, but we did not see any bile staining or inflammation in the lesser sac. There was some edema fluid in the retroperitoneum. We incised the white line of Toldt on the right and mobilized the right colon to look at the duodenum, and it felt normal and looked normal. The gallbladder appeared normal. We did look at the appendix and decided to take it out. It was not enlarged or inflamed. The NG tube was noted within the stomach. We palpated the pancreas. It felt normal. We did run the small bowel from the ligament of Treitz all the way to the cecum, and there was gradual transition of dilatation to decompressed small bowel. No intraluminal filling defects were seen. No Meckel was identified. The colon was also palpated, and again it felt satisfactory until we got to the distal sigmoid and rectum, where it felt thickened. As I said, we decided to take the appendix out. We did take the LigaSure through the base the appendix until we reached the base of the appendix. We then placed a 2-0 silk pursestring there. We crushed the base of the appendix, ligated with a 3-0 Polysorb. Then we did not get a good dunk of the appendiceal stump so we placed a 2-0 silk Z-stitch, and then were allowed to cover the stump after using the 2-0 silk Z-stitch. We then copiously irrigated the abdominal cavity. The cloudy peritoneal fluid, I failed to mention, was cultured upon entering the abdominal cavity. After irrigating the abdominal cavity, we then proceeded to close the peritoneum with 2-0 chromic. We closed the fascia with running #2 Prolene. We injected 0.5 Marcaine with epinephrine in the subcutaneous tissue circumferentially, then closed the skin with silvia. A sterile dressing was applied. He tolerated it well and was sent to the recovery room in satisfactory condition. cc: Ovi Lynne MD
[2018-06-21] MEDS: VANCOMYCIN 1,750 MG in NS 250 ML IV SCH (00:28)
[2018-06-21] MEDS: MORPHINE IV PRN ×6 (00:29→21:20)
[2018-06-21] MEDS: FLAGYL 500 MG/NS 500 MG/100 ML IVPB IV SCH ×5 (00:29→23:17)
[2018-06-21] MEDS: D5 1/2 NS + KCL 20 MEQ 1,000 ML IV SCH ×4 (02:21→23:17)
[2018-06-21] MEDS: HEPARIN SUBQ SCH ×4 (04:48→20:43)
[2018-06-21 08:42] LABS: BASO# 0.03 X1000 (0.0-0.2); BASO% 0.2 % (0.0-0.8); HEMATOCRIT 38.6 % (42.0-52.0); HEMOGLOBIN 12.8 g/dL (14.0-18.0); IMM GRAN# 0.27 X1000 (0.0-0.04); LYMPH# 0.89 X1000 (1.2-3.4); LYMPH% 6.6 % (20.5-51.1); MCHC 33.2 g/dL (33-37); MCV 90.6 FL (81-99); MONO# 0.76 X1000 (0.11-0.59); MONO% 5.6 % (1.7-9.3); MPV 10.3 FL (7.4-10.4); NEUT# 11.56 X1000 (1.4-6.5); NEUT% 85.6 % (42.2-75.2); PLT 146 X1000 (130-400); RBC 4.26 XMIL (4.7-6.1); RDW 14.1 % (11.5-14.5); WBC 13.51 X1000 (4.8-10.8)
[2018-06-21 08:56] LABS: AGAP 9; BUN 31 mg/dL (8-22); CALCIUM 7.9 mg/dL (8.8-10.2); CHLORIDE 111 mmol/L (98-107); COSMO 297; CREATININE 0.9 mg/dL (0.7-1.2); ESTIMATED GFR > 60; GLUCOSE 125 mg/dL (70-104); POTASSIUM 3.8 mmol/L (3.5-5.1); SODIUM 145 mmol/L (136-145); TCO2 25 mmol/L (25-35)
[2018-06-21] MEDS: TAMIFLU PO SCH ×2 (09:04→20:42)
[2018-06-21] MEDS: ROCEPHIN 1 GM in NS 50 ML IV SCH (09:04)
--- NOTE | 2018-06-21 09:30 | GENERAL SURGERY PROGRESS NOTE ---
DATE: 06/20/2018 Mr. Martinez has not passed any flatus today. He wants something done. His bowels are quiet. He has no localized tenderness. He has a little air in his colon but not a significant amount. We discussed proceeding with laparotomy which he desires to do. I discussed with him that we could find various pathologies and we may or may not require some kind of stoma. He understands all this, wants to proceed. Will plan to proceed this afternoon. cc: Ovi Lynne MD
[2018-06-21 09:32] LABS: BANDS 2 % (0-1); EOS 1 % (1-10); LYMPHS 6 % (21-51); MONO 3 % (1-9); SEGS 86 % (42-75)
[2018-06-21] MEDS: PROTONIX IV SCH (10:17)
--- NOTE | 2018-06-21 12:22 | PROVIDER PROGRESS NOTE ---
Progress Note - - SUBJECTIVE: Patient underwent exlap with lysis of adhesion yesterday without complications. No acute overnight events. Afebrile. Patient reports significant improvement in abdominal pain and primarily complains of incisional pain. He notes some mild flatus and bowel sounds. No further nausea or vomiting. NGT clamped. OBJECTIVE: Last Vital Signs Temp 98.2 F 06/21/18 08:00 Pulse 85 06/21/18 09:30 Resp 18 06/21/18 09:30 BP 152/100 06/21/18 09:00 Pulse Ox 98 06/21/18 09:30 Height 5 ft 11 in Weight 187 lb 12.8 oz GEN: awake, alert, NAD HEENT: anicteric, MMM, NGT in place, clapped NECK: supple, no JVD CV: RRR, no murmurs PULM: CTAB, no wheezing ABD: midline incision c/d/i, distended abdomen, BS present EXT: no cce NEURO: nonfocal LABS: 06/21/18 06/21/18 08:23 08:23 WBC 13.51 H Hgb 12.8 L Plt Count 146 Sodium 145 Potassium 3.8 Chloride 111 H Carbon Dioxide 25 BUN 31 H Creatinine 0.9 Glucose 125 H BC showing Group A strep pyogenes; repeat x2 pending peritoneal cavity culture pending 06/20 POSTOPERATIVE DIAGNOSES: 1. Small-bowel obstruction. 2. Proctitis with retroperitoneal inflammation. A/P: Mr. Lucas Martinez is a 47-year-old gentleman with history of alcoholism who presents with sepsis found to have influenza A, GAS bacteremia, and proctitis. Course complicated by SBO requiring exlap and lysis of adhesions on 06/20. Interoperatively, sigmoid colonic wall thickening was noted. He appears to have significant clinical improvement after surgery. Will continue to monitor #SBO: unclear etiology; no prior abdominal surgeries; proctitis on imaging; ddx includes IBD, infectious; unlikely stercoral ulcers, ischemic - NGT clapped, defer mgmt to surgery - currently NPO; hopefully we can start clears in the next day or so - correct lytes, IVFs, antiemetics prn - surgery following, appreciate recs #Influenza: on Tamiflu #GAS bacteremia: on abx per primary team #Leukocytosis: 2/2 to infections #Proctitis: HIV negative: unclear etiology; patient will need diagnostic colonoscopy when acute issues resolve #Thrombocytopenia: 2/2 to splenomegaly Will follow with you. Please call with questions or concerns
--- NOTE | 2018-06-21 12:42 | PROGRESS NOTE ---
DATE: 06/21/2018 INTERVAL HISTORY: Mr. Martinez went for exploratory laparotomy on 06/20/2018 for persistent small- bowel obstruction and very high NG tube output. In the laparotomy, he was found to have a lot of inflammation and adhesion of a of a loop of small bowel in the retroperitoneum. It is likely that the inflammation was related to the proctitis he had which was causing a loop of small bowel to get obstructed. The adhesions were removed and small bowels were released. The fluid from the washout was sent to the lab. The patient tolerated the procedure well and he was sent back to the ICU floor. He continues to have an NG tube 6 hours on and 6 hours off. His blood culture is growing Streptococcus pyogenes. SUBJECTIVE: Patient is feeling much better. Does not appear in any acute distress. I discussed with him about the surgery finding and I answered all of his questions. PHYSICAL EXAMINATION: Vital signs: He has been afebrile, temperature of 97.9 degrees, pulse of 90 per minute, blood pressure 164/111, respiratory rate of 26, saturating 95% on 1 L nasal cannula. General: He does have diffuse erythema affecting his entire body which is blanchable. Does not appear in any acute distress. HEENT: Oral cavity is moist without any pharyngitis. Lungs: Air entry bilaterally equal. No wheeze, rhonchi, or crackles. Cardiovascular: S1, S2 normal. Tachycardic. No murmur, rub, or gallop. Abdomen: Distended with gas, tympanic to percussion. Active bowel sounds that I could appreciate. Mild tenderness in epigastric region. Extremities: No lower extremity edema. Genitourinary: He has a Palencia catheter. LABORATORY DATA: Lab data today suggestive of leukocytosis, normocytic anemia, acceptable range of platelet count. Hyperchloremia. Resolution of hypokalemia, improving BUN and creatinine. MICROBIOLOGY: Blood culture growing Streptococcus pyogenes group A sensitive to penicillins. Repeat blood culture on June 20 is pending. ASSESSMENT AND PLAN: 1. Streptococcus pyogenes sepsis without toxic shock syndrome as he did not have hypotension. His generalized body erythema is because of toxins produced by Streptococcus pyogenes, likely source. He does not have any evidence off skin or soft tissue infection. It is possible that he might have had some excoriations on his rectum which led to introduction of streptococcal infection as well as proctitis. Change antibiotics to intravenous ceftriaxone. I will continue intravenous Flagyl for now. Awaiting final blood culture of repeat drawn on June 20. 2. Acute small-bowel obstruction due to inflammatory exudates from proctitis causing small bowel loop adhesion, status post laparotomy and adhesiolysis on June 20. Surgery on board. Continue NG tube intermittently. Continue intravenous fluids. Appreciate Surgery recommendation on nutrition. 3. Influenza type A. Continue droplet precautions and Tamiflu for a total of 5 days. 4. Acute kidney injury due to prerenal failure due to sepsis, improving. Continue intravenous fluids until he starts taking by mouth. 5. 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 No need of transfusion at the moment. 6. Deep venous thrombosis prophylaxis. Heparin subcutaneously. 7. Disposition. Patient remains inside the ICU for close monitoring of his respiratory and hemodynamics status. If he continues to do well, my plan is to send him out of ICU to step- down unit or medical floor tomorrow. Plan of care was discussed with him. All of his questions have been answered. cc: Chet Gilmore MD
--- NOTE | 2018-06-21 13:49 | GENERAL SURGERY PROGRESS NOTE ---
DATE: 06/21/2018 SUBJECTIVE: The patient is doing well. No severe pain. No nausea or vomiting overnight. OBJECTIVE: Vital Signs: He is afebrile. Vital signs are stable. General: He is awake, alert, no acute distress. Respiratory: Bilateral equal breath sounds. No work of breathing. Cardiovascular: Regular rate and rhythm. Gastrointestinal: Soft, nondistended. A few bowel sounds heard. Appropriately tender to palpation. Midline incisional dressing is dry with old bloody shadow. NG tube with 535 mL in bilious appearance. LABORATORY STUDIES: None today. ASSESSMENT AND PLAN: A 47-year-old male postoperative day 1 exploratory laparotomy, lysis of adhesions, and appendectomy. He appears to be doing well in the first 24 hours. We will encourage mobility up to a chair, begin NG tube clamp trials, and let him have ice chips. cc: Mauri Gloria MD
[2018-06-22] MEDS: D5 1/2 NS + KCL 20 MEQ 1,000 ML IV SCH ×5 (02:41→23:44)
[2018-06-22] MEDS: ZOFRAN IV PRN ×5 (03:51→21:33)
[2018-06-22] MEDS: HEPARIN SUBQ SCH ×3 (04:56→21:11)
[2018-06-22] MEDS: FLAGYL 500 MG/NS 500 MG/100 ML IVPB IV SCH ×4 (05:01→23:45)
[2018-06-22 06:12] LABS: BASO# 0.03 X1000 (0.0-0.2); BASO% 0.2 % (0.0-0.8); HEMATOCRIT 37.9 % (42.0-52.0); HEMOGLOBIN 12.7 g/dL (14.0-18.0); IMM GRAN% 1.2 % (0.0-0.5); LYMPH# 1.31 X1000 (1.2-3.4); LYMPH% 8.1 % (20.5-51.1); MCH 30.3 PG (27-31); MCHC 33.5 g/dL (33-37); MCV 90.5 FL (81-99); MONO# 0.78 X1000 (0.11-0.59); MONO% 4.8 % (1.7-9.3); MPV 10.9 FL (7.4-10.4); NEUT# 13.79 X1000 (1.4-6.5); NEUT% 85.7 % (42.2-75.2); PLT 184 X1000 (130-400); RBC 4.19 XMIL (4.7-6.1); RDW 13.8 % (11.5-14.5); WBC 16.11 X1000 (4.8-10.8)
[2018-06-22 06:30] LABS: AGAP 9; BUN 27 mg/dL (8-22); CALCIUM 7.7 mg/dL (8.8-10.2); CHLORIDE 109 mmol/L (98-107); COSMO 293; CREATININE 0.8 mg/dL (0.7-1.2); ESTIMATED GFR > 60; GLUCOSE 117 mg/dL (70-104); POTASSIUM 3.6 mmol/L (3.5-5.1); SODIUM 144 mmol/L (136-145); TCO2 26 mmol/L (25-35)
[2018-06-22 06:43] LABS: LYMPHS 2 % (21-51); SEGS 94 % (42-75)
[2018-06-22] MEDS: ROCEPHIN 1 GM in NS 50 ML IV SCH (07:55)
[2018-06-22] MEDS: TAMIFLU PO SCH ×3 (07:56→21:11)
[2018-06-22] MEDS: PROTONIX IV SCH (10:17)
--- NOTE | 2018-06-22 10:51 | PROGRESS NOTE ---
DATE: 06/22/2018 INTERVAL HISTORY: No acute overnight events. The patient kept on getting intermittent NG tube clamping. He denies any nausea, and his abdominal pain is better currently. OBJECTIVE: Vital signs: Currently vital signs suggest temperature of 98.9, pulse of 82 per minute, respiratory rate of 25 per minute, saturating 92% to 93% on room air. General: Does not appear in any acute distress. He does have diffuse erythema affecting his entire body, which is blanchable. HEENT: Oral cavity is moist. NG tube in place. Lungs: Air entry bilaterally equal. No wheeze, rhonchi, crackles. Cardiovascular: S1, S2 normal. Tachycardic. No murmur, rub, or gallop. Abdomen: Distended with gas, tympanic to percussion. Hypoactive bowel sounds. No tenderness. Extremities: No lower extremity edema. Genitourinary/Rectal: He has a Palencia catheter in place. From a previous rectal examination, there was no visible trauma or skin or soft tissue infection that I could see. Others: I was informed by the nurse that the patient has not been coming out of bed and sitting in the chair. I advised him that he should do that. MICROBIOLOGY: Repeat blood culture has not shown any growth. ASSESSMENT AND PLAN: 1. Streptococcus pyogenes sepsis without toxic shock syndrome, as he did not have hypotension. His generalized body erythema is because of toxins produced by Streptococcus pyogenes. He does not have any evidence of skin or soft tissue infection. It is possible that he had a mechanical skin or mucosal tear at the time of anal intercourse, which might have led to introduction of infection leading to proctitis. Continue intravenous ceftriaxone and intravenous Flagyl. 2. Acute small-bowel obstruction, likely due to inflammatory exudates from proctitis causing small bowel loop adhesions status post laparotomy and additional lysis on 06/20/2018. Continue intermittent NG tube suction and intravenous fluids. Surgery on board. The patient was again encouraged to come out of bed and sit in the chair. 3. Influenza type A. Continue droplet precautions and Tamiflu for at least 5 days. My plan is to continue it until his p.o. intake starts adequate. 4. Acute kidney injury due to prerenal failure because of sepsis, improved. Decrease intravenous fluids. 5. Thrombocytopenia, resolved. This was likely related to hypersplenism related to his alcohol use disorder. 6. Deep vein thrombosis (DVT) prophylaxis. Heparin subcutaneous. DISPOSITION: The patient remains in ICU for his persistent small-bowel obstruction and need for intravenous antibiotics and intravenous fluids. He does appear hemodynamically stable; however, considering that he recently had laparotomy and has likely persistent ileus, I would watch him for another 24 hours and then plan to step-down unit to [facility] tomorrow. CRITICAL CARE TIME: More than 30 minutes of critical care time was spent in taking care of this patient. cc: Chet Gilmore MD
[2018-06-22] MEDS: MORPHINE IV PRN ×4 (11:36→21:33)
--- NOTE | 2018-06-22 15:11 | PROVIDER PROGRESS NOTE ---
Progress Note - - SUBJECTIVE: No acute overnight events. Afebrile. No N/V, CP, SOB. NGT in place. Remains NPO. Patient reports having minimal flatus. No BMs. After initially denying any anal trauma, the patient now admitted to having unprotected receptive anal intercourse about 1 week prior to onset of symptoms. OBJECTIVE: Last Vital Signs Temp 99.1 F 06/22/18 12:00 Pulse 87 06/22/18 14:00 Resp 21 06/22/18 14:00 BP 168/96 06/22/18 14:00 Pulse Ox 95 06/22/18 14:00 Height 5 ft 11 in Weight 188 lb 12.8 oz GEN: awake, alert, NAD HEENT: anicteric, MMM NECK supple CV: RRR no mrg ABD: midline incision with dressing c/d/i; BS present, distended, minimal diffuse TTP, no rebound or guarding EXT: no cce NEURO: nonfocal SKIN: moist, WWP LABS: 06/22/18 06/22/18 04:54 04:54 WBC 16.11 H Hgb 12.7 L Plt Count 184 Sodium 144 Potassium 3.6 Chloride 109 H Carbon Dioxide 26 BUN 27 H Creatinine 0.8 Glucose 117 H A/P: Mr. Lucas Martinez is a 47-year-old gentleman with history of alcoholism who presents with sepsis found to have influenza A, GAS bacteremia, and proctitis. Course complicated by SBO requiring exlap and lysis of adhesions on 06/20. Interoperatively, sigmoid colonic wall thickening was noted. Persistent leukocytosis noted. Patient had unprotected receptive anal intercourse 1 week prior to symptoms, which could explain his proctitis. HIV was negative. #SBO: s/p exlap and lysis of adhesions; NGT in place; continue supportive care; surgery following, apprec recs #Proctitis: recommend GC/chlam probe; ordered HSV PCR and RPR #Influenza: on Tamiflu #GAS bacteremia: unclear etiology given this is typically cutaneous/pulmonary infection; on abx; repeat BCx2 NGTD #Thrombocytopenia: 2/2 to splenomegaly Will follow with you. Please call with questions or concerns
[2018-06-22] MEDS: LABETALOL IV PRN (15:46)
[2018-06-22] MEDS ORDERED: NON-FORMULARY BULK MED MISC PRN (17:30)
[2018-06-23] MEDS: FLAGYL 500 MG/NS 500 MG/100 ML IVPB IV SCH ×4 (05:00→23:44)
[2018-06-23] MEDS: HEPARIN SUBQ SCH ×3 (05:00→20:05)
[2018-06-23] MEDS: ZOFRAN IV PRN ×4 (05:12→18:39)
[2018-06-23] MEDS: MORPHINE IV PRN ×5 (05:12→18:39)
[2018-06-23] MEDS: ROCEPHIN 1 GM in NS 50 ML IV SCH (07:55)
[2018-06-23] MEDS: PROTONIX IV SCH (08:03)
[2018-06-23] MEDS: TAMIFLU PO SCH (08:04)
[2018-06-23] MEDS: LABETALOL IV PRN ×2 (09:02→15:58)
[2018-06-23] MEDS: D5 1/2 NS + KCL 20 MEQ 1,000 ML IV SCH ×3 (09:03→23:44)
--- NOTE | 2018-06-23 14:14 | GASTROENTEROLOGY PROGRESS NOTE ---
DATE: 06/23/2018 SUBJECTIVE: The patient is resting in bed. The patient is feeling better. He is passing flatus. He had a laparotomy and lysis of adhesions to the pelvic floor, appendectomy per Dr. Ovi Lynne on 06/20/2018. This is postoperative day 3. Dr. Lynne is following. OBJECTIVE: Vitals: reviewed General: Moderately built in no acute distress. HEENT: Mild pallor, no icterus, NGT in place. Abdomen: Distended. Midline laparotomy scar with surgical dressing in place. Mildly tender. Extremities: No lower extremity edema. Neurologic: Alert, and oriented x3. MICROBIOLOGY: Chlamydia, gonorrhea, rectal swab have been negative. ASSESSMENT AND PLAN: 1. Proctitis, likely secondary to anal trauma. Human immunodeficiency virus was negative. Follow up on the herpes simplex virus and chlamydia and gonorrhea swabs from the rectum, and treat them accordingly per the primary team. 2. Influenza. He is on Tamiflu. 3. Thrombocytopenia. Continue to watch for now. Likely secondary to splenomegaly. 4. Leukocytosis. He is on Flagyl and ceftriaxone. 5. Gastrointestinal prophylaxis with proton pump inhibitors. 6. Pain control with intravenous morphine. 7. Deep venous thrombosis prophylaxis with heparin 5000 units every 8 hours subcutaneously. 8. Group A strep pyogenes on blood culture on admission. He is on intravenous ceftriaxone. 9. The patient will follow up in the clinic after discharge for possible flexible sigmoidoscopy or colonoscopy. The above plans were discussed with the patient, and all questions were answered. Please call us with any further questions. cc: Berny Murphy MD MTDD
--- NOTE | 2018-06-23 14:43 | PROGRESS NOTE ---
DATE: 06/23/2018 INTERVAL HISTORY: No events. His NG tube was taken out by surgical team today. He was feeling a little nauseous and had burping in the morning time. He has been passing gas since midnight. He was out of bed today. Does not appear in any acute distress. We discussed with him about the completion of flu treatment and negative repeat blood cultures. I answered all of his questions. OBJECTIVE: Vitals: Temperature 99.7 degrees, pulse 85, respiratory rate 22, blood pressure 168/105, saturating 94% on room air. General: Does not appear in any acute distress. HEENT: Oral cavity is moist. Lungs: Air entry bilaterally equal. No wheeze, rhonchi , crackles. Cardiovascular: S1, S2 normal. Not tachycardic. No murmur, rub, or gallop. Abdomen: Distended. Midline laparotomy scar with silvia on. Mildly tender. Active bowel sounds. Extremities: No lower extremity edema. Neurologic: Alert, and oriented x3. MICROBIOLOGY: Chlamydia, gonorrhea, rectal swab have been negative. ASSESSMENT AND PLAN: 1. Streptococcus pyogenes sepsis without toxic shock syndrome. He does not have any evidence of skin or soft tissue infection. It is possible that he had a mechanical skin or mucosal tear at the time of anal intercourse, which might have led to introduction of streptococcal bacteria causing proctitis. Continue intravenous ceftriaxone and intravenous Flagyl. 2. Acute small-bowel obstruction, likely due to inflammatory exudate from proctitis causing small bowel loop adhesion, status post laparotomy and adhesiolysis on 06/20/2018. He is status post NG tube. I will appreciate Surgery's recommendation about starting him on diet. He is out of bed now. 3. Influenza type A status post 5 days of Tamiflu. 5. Essential hypertension: Start him on IV enalaprilat. Continue PRN labetalol. I will start Lisinopril PO tomorrow. 4. Acute kidney injury due to renal failure because of sepsis, now improved. 5. Thrombocytopenia because of hypersplenism related to alcohol use disorder. Currently stable. 6. Deep vein thrombosis (DVT) prophylaxis. Heparin subcutaneous. DISPOSITION: I will remove patient's Palencia catheter. His activity is as tolerated. I will appreciate Surgery's recommendation about starting diet, and I will transfer patient to surgical floor. Plan of care was discussed with him. All of his questions have been answered. cc: Chet Gilmore MD MTDD
--- NOTE | 2018-06-23 17:36 | GENERAL SURGERY PROGRESS NOTE ---
DATE: 06/23/2018 It is 12:25 p.m. Mr. Martinez is passing flatus. His abdomen is soft. Bowel sounds are present. He has been tolerating intermittent clamping his NG tube. He is afebrile, heart rate 82, blood pressure 160/100. The plan will be to remove his NG tube today. Will start him on some liquids tomorrow. cc: Ovi Lynne MD
[2018-06-23] MEDS: VASOTEC IV SCH ×2 (18:25→23:44)
[2018-06-24] MEDS: LABETALOL IV PRN (01:23)
[2018-06-24] MEDS: ZOFRAN IV PRN ×4 (02:42→17:21)
[2018-06-24] MEDS: MORPHINE IV PRN ×4 (02:42→17:21)
--- NOTE | 2018-06-24 04:39 | GENERAL SURGERY PROGRESS NOTE ---
DATE: 06/23/2018 SUBJECTIVE: The patient is feeling better. He has decreasing pain. No nausea or vomiting. OBJECTIVE: Vital Signs: He is afebrile. Vital signs are stable. NG tube with 400 mL of bilious fluid. Urine output 3640 mL. General: He is awake, alert, and oriented x3. No acute distress. GI: Soft, nondistended. He has better bowel sounds. Appropriately tender throughout. Incision is clean, dry, and intact. Laboratory: White blood cell count is 6, hemoglobin 12, hematocrit 38. Basic metabolic profile reviewed and unremarkable. ASSESSMENT AND PLAN: A 47-year-old male status post exploratory laparotomy and lysis of adhesions. He is gradually improving. We will continue the nasogastric tube clamp trials today and I anticipate that could be removed tomorrow. cc: Mauri Gloria MD
[2018-06-24] MEDS: HEPARIN SUBQ SCH ×3 (06:39→21:54)
[2018-06-24] MEDS: FLAGYL 500 MG/NS 500 MG/100 ML IVPB IV SCH ×3 (06:39→17:21)
[2018-06-24] MEDS: VASOTEC IV SCH (06:40)
[2018-06-24] MEDS: ROCEPHIN 1 GM in NS 50 ML IV SCH (08:10)
[2018-06-24] MEDS: PROTONIX IV SCH (08:11)
[2018-06-24 09:04] LABS: BASO# 0.09 X1000 (0.0-0.2); BASO% 0.6 % (0.0-0.8); HEMATOCRIT 39.4 % (42.0-52.0); IMM GRAN# 0.31 X1000 (0.0-0.04); IMM GRAN% 2.1 % (0.0-0.5); LYMPH% 12.8 % (20.5-51.1); MCH 30.2 PG (27-31); MCV 91.4 FL (81-99); MONO# 0.53 X1000 (0.11-0.59); MONO% 3.6 % (1.7-9.3); MPV 10.5 FL (7.4-10.4); NEUT# 12.07 X1000 (1.4-6.5); NEUT% 80.9 % (42.2-75.2); PLT 289 X1000 (130-400); RBC 4.31 XMIL (4.7-6.1); RDW 13.9 % (11.5-14.5)
[2018-06-24 09:27] LABS: LYMPHS 12 % (21-51); MONO 3 % (1-9); SEGS 85 % (42-75)
[2018-06-24 09:30] LABS: AGAP 7; BUN 21 mg/dL (8-22); CALCIUM 7.8 mg/dL (8.8-10.2); CHLORIDE 103 mmol/L (98-107); COSMO 281; CREATININE 0.9 mg/dL (0.7-1.2); ESTIMATED GFR > 60; GLUCOSE 112 mg/dL (70-104); POTASSIUM 3.9 mmol/L (3.5-5.1); SODIUM 139 mmol/L (136-145); TCO2 29 mmol/L (25-35)
--- NOTE | 2018-06-24 09:39 | PROVIDER PROGRESS NOTE ---
Progress Note - - SUBJECTIVE: No acute overnight events. No N/V/F, CP, or SOB. Some abdominal distension. Incisional pain. +Flatus. No bowel movement. Tolerating clears OBJECTIVE: Last Vital Signs Temp 98.1 F 06/24/18 07:55 Pulse 80 06/24/18 07:55 Resp 20 06/24/18 07:55 BP 164/101 06/24/18 07:55 Pulse Ox 97 06/24/18 07:55 Height 5 ft 11 in Weight 181 lb GEN: awake, alert, NAD, pleasant HEENT: anicteric, MMM NECK: supple, no JVD CV: RRR, no murmurs PULM: CTAB, no wheezing ABD: midline incision c/d/i; distended, tympanic, BS hyperactive, mild diffuse TTP, no rebound or guarding EXT: no cce NEURO: nonfocal LABS: 06/24/18 06/24/18 08:35 08:35 WBC 14.90 H Hgb 13.0 L Plt Count 289 Sodium 139 Potassium 3.9 Chloride 103 Carbon Dioxide 29 BUN 21 Creatinine 0.9 Glucose 112 H A/P: Mr. Lucas Martinez is a 47-year-old gentleman with history of alcoholism who presented with sepsis found to have influenza A, GAS bacteremia, and proctitis. Course complicated by SBO requiring exlap and lysis of adhesions on 06/20. Interoperatively, sigmoid colonic wall thickening was noted. Leukocytosis improving. Patient tolerating clears. Slowly progressing. #SBO: s/p exlap and lysis of adhesions; on clears; continue supportive care; surgery following, apprec recs #Proctitis: likely from trauma; HIV neg, RPR negative, GC/chlam probe negative; HSV PCR pending; patient will need eventual outpatient colonoscopy #Influenza: s/p Tamiflu completed 06/23 #GAS bacteremia: unclear etiology given this is typically cutaneous/pulmonary infection; on CTX; repeat BCx2 NGTD #Thrombocytopenia: 05/31 to splenomegaly Will follow with you. Please call with questions or concerns
--- NOTE | 2018-06-24 11:23 | PROGRESS NOTE ---
DATE: 06/24/2018 INTERVAL HISTORY: Mr. Martinez was transferred from ICU to a medical floor. His NG tube was removed. He has been started on clear liquid diet. SUBJECTIVE: He is feeling fine. He states he has been belching frequently. He has also been passing consistently intermittent gas. Denies worsening abdominal pain, nausea, or vomiting. Denies fevers or chills. PHYSICAL EXAMINATION: Vital signs: Temperature of 98.1 degrees, pulse of 80 per minute, blood pressure 160/101, saturating 97% on room air. General: Does not appear in any acute distress. Oral cavity is dry. Lungs: Air entry bilaterally equal. No wheeze, rhonchi, crackles. Cardiovascular: S1, S2 normal. Not tachycardic. No murmur, rub, or gallop. Abdomen: Distended. Midline laparotomy scar with silvia on. Mild tenderness around the incision site. Tympanic to percussion. Active bowel sounds. Extremities: No lower extremity edema. Rectal: He has visible external hemorrhoids which are nonbleeding. Neurologic: Alert and oriented x3. LABORATORY DATA: Suggestive of improving leukocytosis. Hemoglobin and platelet count in acceptable range. Normal electrolytes with normal kidney function. MICROBIOLOGY: Blood culture drawn on June 20, no growth to date. Peritoneal fluid cultures obtained during surgery did not grow anything. ASSESSMENT AND PLAN: 1. Streptococcus pyogenes sepsis without toxic shock syndrome, without any definite evidence of skin or soft tissue infection or pneumonia. It is possible that he had mechanical skin or mucosal tear at the time of anal intercourse which might have led to introduction of Streptococcus bacteria causing proctitis and sigmoid colon inflammation and sigmoid colitis. Continue intravenous ceftriaxone and intravenous Flagyl. He would need a total of 14 days of antibiotics. I will consider changing it to p.o. antibiotics once his leukocytosis resolves. If he develops fever or worsening leukocytosis, I might consider repeat CT scan of his abdomen and pelvis to rule out any abscess. 2. Acute small-bowel obstruction, likely due to inflammatory exudate from proctitis causing small bowel loop adhesion in retroperitoneal space, status post laparotomy and adhesiolysis on June 20. Continue clear liquid diet as per surgery recommendation. 3. Influenza type A, status post 5 days of Tamiflu. 4. Essential hypertension. Continue IV p.r.n. labetalol. I will start him on p.o. lisinopril. 5. Acute kidney injury due to sepsis, improved. 6. 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 7. Deep venous thrombosis prophylaxis. Heparin subcutaneous. 8. External hemorrhoids, not bleeding. The patient would likely need outpatient colonoscopy once the acute proctitis resolves. 9. Disposition. Patient remains inside the hospital for post laparotomy progress. Plan of care was discussed with him. All of his questions have been answered. cc: Chet Gilmore MD
[2018-06-24] MEDS: PRINIVIL PO SCH (11:33)
[2018-06-24] MEDS: NORVASC PO SCH (11:33)
[2018-06-24] MEDS: D5 1/2 NS + KCL 20 MEQ 1,000 ML IV SCH (11:36)
--- NOTE | 2018-06-24 12:40 | GENERAL SURGERY PROGRESS NOTE ---
DATE: 06/24/2018 SUBJECTIVE: He is now 4 days after a laparotomy. OBJECTIVE: His abdomen is bit softer but still tympanitic. He has bowel sounds. He is passing flatus and having loose bowel movements. PLAN: Will be to start him on clear liquids today. cc: Ovi Lynne MD
[2018-06-25] MEDS: FLAGYL 500 MG/NS 500 MG/100 ML IVPB IV SCH ×4 (00:10→17:24)
[2018-06-25] MEDS: MORPHINE IV PRN ×5 (00:14→22:33)
[2018-06-25] MEDS: ZOFRAN IV PRN ×5 (00:14→22:37)
[2018-06-25] MEDS: D5 1/2 NS + KCL 20 MEQ 1,000 ML IV SCH (02:56)
[2018-06-25] MEDS: HEPARIN SUBQ SCH ×3 (05:43→22:33)
[2018-06-25] MEDS ORDERED: ULTRACET 37.5MG/325MG PO PRN (08:26)
[2018-06-25] MEDS: ROCEPHIN 1 GM in NS 50 ML IV SCH (08:33)
[2018-06-25] MEDS: PRINIVIL PO SCH (08:50)
[2018-06-25] MEDS: NORVASC PO SCH (08:50)
--- NOTE | 2018-06-25 09:03 | GENERAL SURGERY PROGRESS NOTE ---
DATE: 06/25/2018 SUBJECTIVE: Mr. Martinez is now 5 days after laparotomy. He is passing flatus. He is tolerating clear liquids. His abdomen remains distended, however, and mildly tympanitic. PLAN: The plan is to advance him to full liquids. Dr. Campbell will be seeing him in my absence. Would advance diet as he can tolerate it. cc: Ovi Lynne MD
[2018-06-25] MEDS: SODIUM CHLORIDE 0.9% INJ SCH (09:41)
[2018-06-25] MEDS: PROTONIX IV SCH (09:41)
--- NOTE | 2018-06-25 10:16 | PROVIDER PROGRESS NOTE ---
Progress Note - - SUBJECTIVE: No acute overnight events. No N/V/F, CP, SOB. Abdominal pain improving. Tolerating full liquids. +flatus. No BM. No rectal bleeding OBJECTIVE: Last Vital Signs Temp 98.0 F 06/25/18 08:00 Pulse 73 06/25/18 08:00 Resp 20 06/25/18 08:00 BP 163/97 06/25/18 08:00 Pulse Ox 98 06/25/18 08:00 Height 5 ft 11 in Weight 180 lb GEN: awake, alert, NAD, pleasant HEENT: anicteric, MMM NECK: supple, no JVD CV: RRR, no murmurs PULM: CTAB, no wheezing ABD: midline incision c/d/i; distended, tympanic, BS present, NT, no rebound or guarding EXT: no cce NEURO: nonfocal LABS: 06/24/18 06/24/18 08:35 08:35 WBC 14.90 H Hgb 13.0 L Plt Count 289 Sodium 139 Potassium 3.9 Chloride 103 Carbon Dioxide 29 BUN 21 Creatinine 0.9 Glucose 112 H A/P: Mr. Lucas Martinez is a 47-year-old gentleman with history of alcoholism who presented with sepsis found to have influenza A, GAS bacteremia, and proctitis. Course complicated by SBO requiring exlap and lysis of adhesions on 06/20. Interoperatively, sigmoid colonic wall thickening was noted. Leukocytosis persistent. Patient tolerating full liquids. Slowly progressing. #SBO: s/p exlap and lysis of adhesions; on clears; continue supportive care; surgery following, apprec recs #Proctitis: likely from trauma; HIV neg, RPR negative, GC/chlam probe negative; HSV PCR pending; patient will need eventual outpatient colonoscopy #Influenza: s/p Tamiflu completed 06/23 #GAS bacteremia: unclear etiology given this is typically cutaneous/pulmonary infection; on CTX; repeat BCx2 NGTD #Thrombocytopenia: 05/31 to splenomegaly Will follow with you. Please call with questions or concerns
--- NOTE | 2018-06-25 19:14 | PROGRESS NOTE ---
DATE: 06/25/2018 INTERVAL HISTORY: The patient's diet was advanced from clear liquids to full liquid diet. He continues to have some belching without any nausea or vomiting. He continues to pass a lot of gas. He had a soft formed bowel movement today, which looked darkish and greenish. We discussed about the need for intravenous antibiotic. Discussed about negative STD testing. OBJECTIVE: Vital signs: Temperature 98.9 degrees, pulse 78, respiratory rate 18, blood pressure 160/96, saturating 98% on room air. General: He does not appear in any acute distress. HEENT: Oral cavity is moist. Lungs: Air entry bilaterally equal. No wheeze, rhonchi, or crackles. Cardiovascular: S1, S2 normal. No tachycardia. No murmur. No rub or gallop. Abdomen: Distended with gas. Midline laparotomy scar with silvia on. Mild tenderness around the incision site and tympanic to percussion. Active bowel sounds. Extremities: No lower extremity edema. Rectal: He has visible external hemorrhoids which are nonbleeding. His rectal examination was performed on June 24. Neurologic: He is alert and oriented x3. LABORATORY DATA: No new lab data today. ASSESSMENT AND PLAN: 1. Streptococcus pyogenes sepsis without toxic shock syndrome without any definitive evidence of skin or soft tissue infection or pneumonia. It is possible that he had a mechanical skin or mucosal tear at the time of anal intercourse, which might have led to introduction of Streptococcus bacteria causing proctitis and sigmoid colitis. Continue intravenous ceftriaxone. I will stop intravenous Flagyl today, as it has been 7 days. If his leukocytosis is better tomorrow, my plan is to get a PICC line to complete a total of 14 days course of antibiotics. The first day of negative blood culture is June 20. If he continues to have leukocytosis, then depending on his symptoms, he might be a candidate of repeat CT scan to rule out an occult abscess. 2. Acute small-bowel obstruction due to inflammatory exudate from proctitis and sigmoid colitis causing small bowel loops adhesion in retroperitoneal space, status post laparotomy and additional lysis on June 20. Continue full liquid diet as per Surgery. 3. Influenza type A, status post 5 days of Tamiflu. 4. Essential hypertension. Continue lisinopril and amlodipine. I will consider increasing the dose of his medications tomorrow as tolerated. 5. Acute kidney injury (BRIANNE) due to sepsis, thrombocytopenia due to hypersplenism related to alcohol use disorder, resolved. 6. Deep venous thrombosis prophylaxis. Heparin subcutaneous. 7. External hemorrhoids and proctitis and sigmoid colitis. He would need outpatient GI colonoscopy. DISPOSITION: Patient remains inside the hospital. If his leukocytosis is better tomorrow and he is tolerating diet well, my plan is to get a PICC line tomorrow and plan a total of 14 days of intravenous antibiotics. The first day of negative blood culture was June 20. Plan of care was discussed with him. All of his questions have been answered. cc: Chet Gilmore MD
[2018-06-26] MEDS: D5 1/2 NS + KCL 20 MEQ 1,000 ML IV SCH (01:09)
[2018-06-26] MEDS: MORPHINE IV PRN ×4 (01:09→19:47)
[2018-06-26] MEDS: HEPARIN SUBQ SCH ×4 (06:09→23:34)
[2018-06-26 06:29] LABS: BASO# 0.03 X1000 (0.0-0.2); BASO% 0.3 % (0.0-0.8); HEMATOCRIT 37.5 % (42.0-52.0); HEMOGLOBIN 12.2 g/dL (14.0-18.0); IMM GRAN# 0.15 X1000 (0.0-0.04); IMM GRAN% 1.3 % (0.0-0.5); LYMPH# 1.86 X1000 (1.2-3.4); LYMPH% 16.3 % (20.5-51.1); MCH 29.9 PG (27-31); MCHC 32.5 g/dL (33-37); MCV 91.9 FL (81-99); MONO# 0.85 X1000 (0.11-0.59); MONO% 7.4 % (1.7-9.3); MPV 10.4 FL (7.4-10.4); NEUT# 8.55 X1000 (1.4-6.5); NEUT% 74.7 % (42.2-75.2); PLT 346 X1000 (130-400); RBC 4.08 XMIL (4.7-6.1); RDW 13.8 % (11.5-14.5); WBC 11.44 X1000 (4.8-10.8)
[2018-06-26 06:55] LABS: AGAP 9; BUN 15 mg/dL (8-22); CALCIUM 7.9 mg/dL (8.8-10.2); CHLORIDE 104 mmol/L (98-107); COSMO 279; CREATININE 0.9 mg/dL (0.7-1.2); ESTIMATED GFR > 60; GLUCOSE 101 mg/dL (70-104); POTASSIUM 3.9 mmol/L (3.5-5.1); SODIUM 139 mmol/L (136-145); TCO2 26 mmol/L (25-35)
[2018-06-26] MEDS: NORVASC PO SCH (09:13)
[2018-06-26] MEDS: PRINIVIL PO SCH (09:13)
[2018-06-26] MEDS: ROCEPHIN 1 GM in NS 50 ML IV SCH (09:13)
[2018-06-26] MEDS: PROTONIX IV SCH (09:13)
[2018-06-26] MEDS: ZOFRAN IV PRN ×2 (09:41→19:47)
[2018-06-26 10:04] LABS: INR 1.33; PROTIME 17.5 Seconds (11.0-16.0)
--- NOTE | 2018-06-26 13:45 | GASTROENTEROLOGY PROGRESS NOTE ---
DATE: 06/26/2018 SUBJECTIVE: He is resting in bed. He is feeling better. He is moving his bowels. He is eating better. He denies any fevers, rigors, or chills. OBJECTIVE: Vital signs: Temperature 98.9 degrees, pulse of 84, respiratory rate 16, blood pressure 160/96, satting 98% on room air. General Appearance: Thinly built male lying in bed. No acute distress. HEENT: Mild pallor. No icterus. Neck: Supple. Abdomen: Discomfort in the pelvic region from recent surgery. Staple line appears intact. No guarding. Extremities: No cyanosis, clubbing. Neurologic: Neuro-gallegos, alert, awake, oriented. LABS: Hemoglobin and hematocrit is 12.2 and 37.1, white count of 11.4, platelet count of 346. Sodium of 139, potassium 3.9, chloride 104, bicarbonate 22, anion gap of 9. BUN of 15, creatinine 0.9, glucose of 101, calcium 7. PT of 17.5, INR 1.3. IMPRESSION/PLAN: 1. Proctitis likely from anal trauma. We will perform a colonoscopy as an outpatient. The patient will follow up in the clinic on discharge. 2. Streptococcus pyogenes sepsis with toxic shock syndrome. Possible source could be colitis. He is on antibiotics with intravenous ceftriaxone. 3. Acute small-bowel obstruction secondary to inflammatory exudate from proctitis and sigmoid colitis causing small bowel loop adhesions in the retroperitoneal space, status post laparotomy and adhesiolysis on 06/20/[address] Lynne is following. 4. Influenza type A. He is on Tamiflu. 5. Acute kidney injury is resolved. 6. Deep vein thrombosis prophylaxis with heparin. 7. Gastrointestinal prophylaxis with Protonix. The above plan discussed with the patient and all questions answered. Follow up with me in 6 weeks after discharge. cc: MD Michel Zuniga MD
--- NOTE | 2018-06-26 18:09 | GENERAL SURGERY PROGRESS NOTE ---
DATE: 06/26/2018 SUBJECTIVE: Patient is seen today for Dr. Lynne. He is doing well. Bowels are function. He is tolerating a diet. No fevers. No tachycardia. OBJECTIVE: Vital signs: Blood pressure is okay. Abdomen: Soft. Incision is intact. Nondistended. LABORATORY: White count 11, hematocrit 37. ASSESSMENT AND PLAN: This is a 47-year-old gentleman status post exploratory laparotomy for bowel obstruction. From a Surgical standpoint, he is doing well. Suspect he can go home in the near future. We will continue to follow along. cc: Hakan Campbell MD
--- NOTE | 2018-06-26 18:59 | PROGRESS NOTE ---
DATE: 06/26/2018 SUBJECTIVE: No acute events overnight, she is having bowel movements. Abdomen is still distended. I will decrease the dose of the morphine since this patient is getting better, and I want to promote more bowel function. He seems to be doing much better. My plan is to probably get a PICC line, and send this patient home with IV antibiotics. OBJECTIVE: Vital Signs: Temperature 98.2 degrees, pulse 91, respiratory rate 16, blood pressure 150/99 and oxygen saturation 98 percent on room air. HEENT: Head normocephalic. No trauma. PERRLA. Neck: Supple. No JVD. Central trachea. Chest: Clear to auscultation. No wheezing. No rales. Abdomen: Soft. Mildly distended, midline laparotomy scar with silvia on. Tenderness to palpation around the incision, tympanic to percussion. Active bowel sounds. No signs of bleeding. Extremities: No lower extremity edema. No clubbing. No cyanosis. Neurological: The patient is alert and oriented x3. No focal deficits. LABORATORY: WBC 11.4, hemoglobin 12.2, hematocrit 37.5, and platelet 346,000. Sodium 139, potassium 3.9, chloride 104, bicarbonate 26, BUN 15, creatinine 0.9, glucose 101 , and calcium 7.9. ASSESSMENT AND PLAN: 1. Strep pyogenes sepsis without toxic shock syndrome, without any evidence of skin of soft tissue infection or pneumonia. Probably, this is related to an anal lesion but not sure, since he had proctitis and sigmoid colitis, I will continue with IV ceftriaxone but I will increase it to 2 g daily. The plan probably is to get a PICC line and complete 14 days of treatment. Probably, we will start counting the treatment since the first day of the negative blood culture on 06/20. WBC is getting better. No fever. No chills. 2. Acute small bowel obstruction due to inflammatory exudate from proctitis and sigmoid colitis causing small bowel loop lesions in the retroperitoneal space status post a laparotomy and lysis of the adhesions on 06/20. Continue with the diet per surgery. 3. Influenza type A status post 5 days of Tamiflu. 4. Hypertension. Continue lisinopril and amlodipine. I have increased the dose of amlodipine to 5 mg p.o. daily. 5. Acute kidney injury due to sepsis. 6. Thrombocytopenia resolved. 7. Possible alcohol use disorder. This patient has been highly advised against alcohol abuse. I will continue with daily cessation education. 8. External hemorrhoids and proctitis and significant colitis. Gastroenterology Department will follow this patient up as an outpatient once the clinical picture is better. cc: Michel Lobo MD MTDD
[2018-06-26] MEDS: ROCEPHIN 2 GM in NS 50 ML IV SCH (19:44)
[2018-06-27] MEDS: MORPHINE IV PRN (00:41)
[2018-06-27] MEDS: ZOFRAN IV PRN ×2 (00:41→04:21)
[2018-06-27] MEDS: D5 1/2 NS + KCL 20 MEQ 1,000 ML IV SCH (01:38)
[2018-06-27] MEDS: HEPARIN SUBQ SCH (04:15)
[2018-06-27 06:14] LABS: BASO# 0.02 X1000 (0.0-0.2); BASO% 0.2 % (0.0-0.8); HEMATOCRIT 38.1 % (42.0-52.0); HEMOGLOBIN 12.4 g/dL (14.0-18.0); IMM GRAN# 0.12 X1000 (0.0-0.04); IMM GRAN% 1.2 % (0.0-0.5); LYMPH# 1.57 X1000 (1.2-3.4); LYMPH% 15.3 % (20.5-51.1); MCHC 32.5 g/dL (33-37); MCV 92.3 FL (81-99); MONO# 0.77 X1000 (0.11-0.59); MONO% 7.5 % (1.7-9.3); MPV 10.1 FL (7.4-10.4); NEUT# 7.75 X1000 (1.4-6.5); NEUT% 75.8 % (42.2-75.2); PLT 377 X1000 (130-400); RBC 4.13 XMIL (4.7-6.1); RDW 13.8 % (11.5-14.5); WBC 10.23 X1000 (4.8-10.8)
[2018-06-27 06:42] LABS: AGAP 8; BUN 11 mg/dL (8-22); CALCIUM 8.1 mg/dL (8.8-10.2); CHLORIDE 101 mmol/L (98-107); COSMO 269; CREATININE 0.9 mg/dL (0.7-1.2); ESTIMATED GFR > 60; GLUCOSE 116 mg/dL (70-104); SODIUM 134 mmol/L (136-145); TCO2 25 mmol/L (25-35)
[2018-06-27] MEDS: PRINIVIL PO SCH (08:26)
[2018-06-27] MEDS: SODIUM CHLORIDE 0.9% INJ SCH (08:27)
[2018-06-27] MEDS: PROTONIX IV SCH (08:27)
[2018-06-27] MEDS ORDERED: NORVASC PO SCH (09:00)
[2018-06-27] MEDS: ROCEPHIN 2 GM in NS 50 ML IV SCH (11:29)
[2018-06-27 11:37] VITALS: BP 175/102
--- NOTE | 2018-06-27 15:24 | PROVIDER PROGRESS NOTE ---
Progress Note - - DATE 06/27/2018 SUBJECTIVE: No acute overnight events. Patient reports having bowel movements without rectal bleeding. No N/V/F, abdominal pain. OBJECTIVE: Last Vital Signs Temp 98.2 F 06/27/18 11:36 Pulse 85 06/27/18 11:36 Resp 16 06/27/18 11:36 BP 175/102 06/27/18 11:36 Pulse Ox 98 06/27/18 11:36 Height 5 ft 11 in Weight 180 lb A/P: Mr. Lucas Martinez is a 47-year-old gentleman with history of alcoholism who presented with sepsis found to have influenza A, GAS bacteremia, and proctitis. Course complicated by SBO requiring exlap and lysis of adhesions on 06/20. Interoperatively, sigmoid colonic wall thickening and RP LAD were noted. Leukocytosis resolving. Patient tolerating diet and having bowel movements. Patient is being discharged today. #SBO: s/p exlap and lysis of adhesions; surgery following, apprec recs #Proctitis: likely from trauma; HIV neg, RPR negative, GC/chlam probe negative; HSV PCR pending; patient will need outpatient colonoscopy in 6-8 weeks #Influenza: s/p Tamiflu completed 06/23 #GAS bacteremia: unclear etiology given this is typically cutaneous/pulmonary infection; s/p abx; repeat BCx2 NGTD #Thrombocytopenia: 05/31 to splenomegaly Will sign off. Please call with questions or concerns
--- NOTE | 2018-06-28 14:13 | DISCHARGE SUMMARY ---
ADMISSION DATE: 06/18/2018 DISCHARGE DATE: 06/27/2018 DISCHARGE DIAGNOSES: 1. Strep pyogenes bacteremia. 2. Acute small bowel obstruction due to inflammatory exudate from proctitis and sigmoid colitis status post laparotomy and lysis of adhesions on 06/20. 3. Influenza type A, status post Tamiflu treatment for 5 days. 4. Hypertension. 5. Acute kidney injury, resolved. 6. Thrombocytopenia, resolved. 7. External hemorrhoids and proctitis with significant colitis aware. 8. Possible alcohol use. Aware. PROCEDURES PERFORMED: 1. Abdomen and pelvis CT scan dated 06/18/2018. Impression: Apparent proctitis and retroperitoneal inflammatory changes/edema, probably ileus. Splenomegaly. 2. Abdominal ultrasound dated 06/26/2018. Impression: Questionable sludge in gallbladder versus artifact. No evidence of gallstones. Normal caliber of the common bile duct at 5 mm. 3. Abdominal x-ray dated 06/19/2018. Impression: High grade small bowel obstruction, no ileus. 4. Abdominal x-ray dated 05/31/2018. Impression: Partial small bowel obstruction, bibasilar atelectasis. HOSPITAL COURSE: A 47-year-old male with no known medical history. He came in from [place], he was visiting a family member here in town. He was admitted on 06/26/2018. Apparently, he started having some fever and chills on Saturday followed by abdominal discomfort, nausea, vomiting and some diarrhea. This was happening on and off during the weekend. On Saturday, he started having worsening abdominal pain, chills, and myalgias, and finally came to the emergency department. In the emergency department, he had multiple laboratory and diagnostic done. His chemistry noted an elevated anion gap metabolic acidosis along with acute kidney injury. However, the rest of the laboratory were basically unremarkable. A subsequent CT of the abdomen and pelvis showed apparent proctitis and retroperitoneal inflammatory changes, edema and probably ileus as well as splenomegaly. Given his symptoms, we ordered a flu swab which was found to be positive for influenza A. The patient was normotensive, however, he was tachycardic. The heart rate was in the 150s or so, and low grade fever 100.7. He was admitted to the ICU. He was started on treatment with Tamiflu. He was thrombocytopenic with splenomegaly as well. An NG tube initially was placed, and Gastroenterology Department as well as Surgery Department were consulted. This patient started receiving also IV fluids. Serial abdominal exam, C diff, ova and parasites culture, HIV, Surgery Department evaluated this patient. They recommended and agreed with antibiotic therapy and required resuscitation of his first priority along with serial abdominal exams. We will follow this patient closely in the ICU. Continue NG suction and serial abdominal exams and x-rays. This patient's abdominal distention and function were not coming back. On 06/20/2018, Dr. Lynne took this patient to the OR to do an exploratory laparotomy, and also lysis of adhesions to the pelvic floor and appendectomy. Due to his small-bowel obstruction and proctitis with decrease of peritoneal inflammation, we will continue with the same management with GI and Surgery Department following this patient closely. After a few days, he was gradually improving, with reclamping the NG tube and, finally we removed it. This patient started to tolerate clear liquid diet around 06/24/2018, and it has been advanced slowly. We had a positive culture from 06/26/2018 that showed a strep pyogenes. This patient was placed on ceftriaxone, which we will continue for 14 days starting on the . He needs to complete treatment with ceftriaxone 2 g daily for 14 days starting on the first day of the negative blood culture 06/20/2018. It looks like he will be discharged home today, and he will need to receive 6 more days of IV treatment which has been already set up for this patient. He refused to use a PICC line, and he will get a peripheral line every time he goes to the infusion center. He seems to understand. He wants to proceed with the treatment. Everything has been set up already with the community mental health social worker. OBJECTIVE: Vital Signs: Temperature 98.2 degrees, pulse 85, respiratory rate 16, blood pressure 175/102, and oxygen saturation 98 percent on room air. HEENT: Head normocephalic. No trauma. PERRLA. Neck: Supple. No JVD. No masses. Central trachea. Chest: Clear to auscultation. No wheezing. No rales. Abdomen: Soft. Mildly distended. Midline. Laparotomy scar with silvia on, and tenderness to palpation around incision. Tympanic to percussion. Active bowel sounds. No signs of bleeding. Extremities: No edema. No clubbing. No cyanosis. Neurological: The patient is alert and oriented x3. No focal deficits. LABORATORY: WBC 10.2, hemoglobin 12.4, hematocrit 38.9, and platelets 377,000. Sodium 134, potassium 4, chloride 101, bicarbonate 25, BUN 11, creatinine 0.9, glucose 116 and calcium 8.9. DISCHARGE MEDICATIONS: 1. Ultracet 37.5 mg/325 mg 1 tablet p.o. q.6 hours as needed. 2. Lisinopril 20 mg p.o. daily. 3. Amlodipine 5 mg p.o. b.i.d. 4. Ceftriaxone 2 g daily IV to complete 14 days of treatment. 5. The first days of treatment it is . FOLLOW UP: Follow up with his primary care doctor in 1 to 2 weeks. cc: Michel Lobo MD
--- NOTE | 2018-06-30 04:05 | GENERAL SURGERY PROGRESS NOTE ---
DATE: 06/27/2018 SUBJECTIVE: No events, no fevers. Abdomen soft, tolerating a diet, bowels are function. I reviewed his labs. ASSESSMENT AND PLAN: 47-year-old gentleman status post exploratory laparotomy. From a surgical standpoint he can go home. Will defer antibiotics and medicine services, he can see us back in a week for his clip removal. cc: Hakan Campbell MD
== END 2018-06-27 13:06 | disposition home or self-care (01) | DRG 854 ==
LOC: SUPCPDRO → ED 06:51 → SUATTDRO 11:25 → ICU 11:25 → 4N 06-24 02:00
PROVIDERS: ATTEND Internal Medicine
CPT/HCPCS: 71010; 71045; 74000; 74018; 74019; 74020; 74022; 74176; 76705; 80048; 80053; 80074; 80101; 80196; 80301; 80307; 80324; 80329; 80345; 80346; 80353; 80358; 80361; 80365; 81001; 82003; 82009; 82150; 82270; 82550; 82570; 82805; 83036; 83605; 83690; 83735; 83874; 83935; 83992; 84100; 84156; 84300; 84439; 84484; 85025; 85610; 85730; 86592; 86701; 87040; 87045; 87046; 87070; 87075; 87077; 87177; 87186; 87205; 87275; 87276; 87324; 87389; 87449; 87491; 87529; 87591; 87804; 88304; 88313; 89055; 93005; 94761; 96361; 96365; 96375; 96376; 99285; A9270; C9113; G0431; G0434; G0479; G0480; G6038; G6039; J0131; J0330; J0696; J1100; J1170; J1644; J1956; J2060; J2270; J2405; J2543; J2550; J3010; J3370; J3480; J7030; J7040; J7050; S0028; S0030; S0164